=== PATIENT | female | born 1950 | race Caucasian/White ===

== ENCOUNTER 2025-06-16 08:59 | Emergency (ER) | payer MEDICARE, MEDICAID, SELFPAY ==
[2025-06-16] VITALS (7 sets, daily range): BP systolic 118–161; BP diastolic 49–89; PULSE 81–95; RESP 14–24; TEMP 36.6–36.7; O2SAT 96–100
--- NOTE | ~2025-06-16 | CT_ITS ---
EXAMINATION: CT brain wo con DATE: 06/16/2025 09:28 INDICATION: Weakness TECHNIQUE: Computed tomography (CT) of the head was performed without intravenous contrast. The dose-length product was 1210.67 mGy-cm. COMPARISON: None FINDINGS: Exam somewhat limited by moderately extensive motion artifact. No gross intracranial mass effect or hemorrhage. No large acute ischemic event. Moderately advanced chronic microvascular ischemic appearing white matter changes and volume loss. Calvarial structures appear grossly normal. IMPRESSION: 1. Moderately extensive motion artifact with no large acute ischemic event, mass or hemorrhage. 2. Moderately extensive chronic-appearing microvascular ischemic appearing white matter changes. Reviewed, dictated and finalized at location A. SERVICE MANAGER IMPRESSION: 1. Moderately extensive motion artifact with no large acute ischemic event, mas s or hemorrhage. 2. Moderately extensive chronic-appearing microvascular ischemic appearing whit e matter changes.
--- NOTE | ~2025-06-16 | XR_ITS ---
EXAMINATION: XR chest 2V, 06/16/2025 9:28 SOCIAL WORKER ASSISTANT HISTORY: weakness, TACHYCARDIA COMPARISON: No comparisons available. Technique: 2 views obtained. Findings: The lungs are clear, no effusion. No pneumothorax. Heart is normal size. Mediastinal and hilar contours are within normal limits. Bony thorax no acute abnormality. Impression: No acute cardiopulmonary abnormality. Reviewed, dictated and finalized at location P. AL WORKER ASSISTANT Impression: No acute cardiopulmonary abnormality.
--- NOTE | 2025-06-16 09:09 | ECG_ITS ---
Test Date: 2025-06-16 09:53:45 Measurements Intervals [place] Rate: 90 P: 46 [place]: 292 QRS: -35 QRSD: 77 T: 34 QT: 414 QTc: 508 Interpretive Statements ATRIAL FLUTTER LOW QRS VOLTAGE IN PRECORDIAL LEADS [QRS DEFLECTION < 1.0 mV IN CHEST LEADS] POSSIBLE RIGHT VENTRICULAR CONDUCTION DELAY [RSR (QR) IN V1/V2] No previous ECG available for comparison Electronically Signed On 06-16-2025 13:20:56 CUSTOMER SUCCESS ADVOCATE by Charles Thornton M.D.
[2025-06-16 09:23] LABS: Hematocrit 41.8 % (37.0-47.0); Hemoglobin 13.9 g/dL (12.0-15.0); Immature Granulocyte Percent A 0.3 % (0-0.5); Lymphocytes Absolute Auto 2.44 K/mm3 (0.9-3.2); Mean Corpuscular HGB Conc 33.3 g/dl (32-36); Mean Corpuscular Hemoglobin 27.1 pg (26-34); Mean Corpuscular Volume 81.6 fl (80-100); Nucleated Red Blood Cells Absolute Auto 0.000 K/mm3 (0.0-0.012); Nucleated Red Blood Cells Perc 0.0 % (0.0-0.2); Platelet Count Result 372 k/mm3 (150-375); Red Blood Count 5.12 M/mm3 (4.2-5.4); White Blood Count 12.0 K/mm3 (4.5-10.0)
[2025-06-16 09:51] LABS: Alanine Aminotransferase 14 U/L (6-35); Albumin Level 4.1 g/dL (3.5-5.1); Alkaline Phosphatase 88 U/L (38-126); Anion Gap 7 mmol/L (4-12); Aspartate Amino Transferase 15 U/L (14-36); Bilirubin,Total 0.4 mg/dL (0.2-1.3); Blood Urea Nitrogen 10 mg/dL (7-17); Calcium 10.1 mg/dL (8.4-10.2); Carbon Dioxide 28 mmol/L (22-30); Chloride 104 mmol/L (98-107); Estimated CRCL calculation 71 ml/min; Estimated Glomerular Filt Rate > 60; Glucose 153 mg/dL (65-110); Potassium 4.3 mmol/L (3.4-5.0); Sodium 139 mmol/L (137-145); Total Protein 7.2 g/dL (6.3-8.2)
--- NOTE | 2025-06-16 09:57 | ECG_ITS ---
Test Date: 2025-06-16 10:00:15 Measurements Intervals [place] Rate: 89 P: 47 [place]: 260 QRS: -50 QRSD: 78 T: 44 QT: 338 QTc: 413 Interpretive Statements SINUS RHYTHM WITH FIRST DEGREE AV BLOCK LEFT AXIS DEVIATION [QRS AXIS < -30] LOW QRS VOLTAGE IN PRECORDIAL LEADS [QRS DEFLECTION < 1.0 mV IN CHEST LEADS] POSSIBLE RIGHT VENTRICULAR CONDUCTION DELAY [RSR (QR) IN V1/V2] POSSIBLE ANTERIOR MYOCARDIAL INFARCTION , PROBABLY OLD [30 ms Q WAVE IN V3/V4, OR R < 0.2 mV IN V4] POSSIBLE INFERIOR MYOCARDIAL INFARCTION , PROBABLY OLD [30 ms Q WAVE IN II/aVF] Compared to ECG 06/16/2025 09:53:45 ST (T wave) deviation no longer present Myocardial infarct finding still present Electronically Signed On 06-16-2025 13:21:19 WHITE MIXING OPERATOR by Charles Thornton M.D.
--- NOTE | 2025-06-16 09:59 | ED_ITS ---
HPI - Weakness General Chief complaint: Weakness Stated complaint: weak, tachy, unsteady gait Time Seen by Provider: 06/16/25 09:04 Source: patient and EMS Mode of arrival: EMS Limitations: other (Poor historian; history of schizophrenia, Parkinson's) History of Present Illness HPI Narrative: This is a 75-year-old female that presents to the emergency department for weakness. Patient has no complaints currently. Unable to give a history. Related Data Allergies Allergy/AdvReac Type Severity Reaction Status Date / Time benztropine Allergy Unknown Verified 06/16/25 09:13 Penicillins Allergy Unknown Verified 06/16/25 09:13 Review of Systems 2 Review of Systems: ROS unobtainable: Yes unobtainable due to medical condition PMFSH Past Medical History Medical History (Updated 06/16/25 @ 12:35 by Dariana Bryan PA-C) Parkinsons Hyperlipidemia Diabetes mellitus Schizophrenia Hypertension Anemia Exam 2 Narrative: GENERAL: Well-appearing, well-nourished, and in no acute distress. HEAD: Normocephalic, atraumatic. EYES: PERRLA and EOMI. ENT: Nares clear, no rhinorrhea or epistaxis. Mucous membranes moist. Oropharynx without tonsillar hypertrophy exudate or other lesions. Bilateral TMs pearly ray non-bulging NECK: Supple. No adenopathy or masses. CHEST: Clear to auscultation. No respiratory distress. No wheezes rales or rhonchi HEART: Regular rate and rhythm. No murmur heard. Normal peripheral pulses. ABDOMEN: Soft, nontender, nondistended, normal active bowel sounds. EXTREMITIES: Normal range of motion. No edema. Strength equal in bilateral upper and lower extremities (4/5) SKIN: Warm, dry, no rash. NEURO: No focal deficits. Alert and oriented x3. PSYCH: Normal mood and affect Course Vital Signs Vital signs: Vital Signs Temperature 97.8 F 06/16/25 09:01 Pulse Rate 90 06/16/25 09:01 Respiratory Rate 18 06/16/25 09:01 Blood Pressure 119/69 06/16/25 09:01 Pulse Oximetry 96 06/16/25 09:01 Oxygen Delivery Room Air 06/16/25 09:01 Temperature 98.0 F 06/16/25 13:03 Pulse Rate 94 06/16/25 13:03 Respiratory Rate 18 06/16/25 13:03 Blood Pressure 144/82 H 06/16/25 13:31 Pulse Oximetry 100 06/16/25 13:03 Oxygen Delivery Room Air 06/16/25 09:01 MDM - Weakness MDM Narrative Medical decision making narrative: Patient presents to the emergency department for reported weakness. Patient is alert and oriented at baseline. No focal deficits on exam. Her vitals are stable. Patient is afebrile and nontoxic appearing. CBC with mild leukocytosis to 12. Metabolic panel without concerning findings. Urine with evidence of infection. This was sent for culture. CT brain with chronic findings. Chest x-ray without acute cardiopulmonary abnormality. Patient given 1st dose of antibiotics IV in the ER, will be discharged back to facility on oral antibiotics. Given warnings to return to the ER Differential Diagnosis Differential diagnosis: Likely anemia, sepsis, dehydration and other (UTI, dehydration, schizophrenia, vascular dementia, Parkinson's) Lab Data Attestation: I reviewed the patient's lab results. 06/16/25 09:15 06/16/25 09:15 Labs: Lab Results 06/16/25 06/16/25 Range/Units 09:15 11:01 WBC 12.0 H (4.5-10.0) K/mm3 RBC 5.12 (4.2-5.4) M/mm3 Hgb 13.9 (12.0-15.0) g/dL Hct 41.8 (37.0-47.0) % MCV 81.6 (80-100) fl MCH 27.1 (26-34) pg MCHC 33.3 (32-36) g/dl RDW 12.9 (11.5-14.5) % Plt Count 372 (150-375) k/mm3 MPV 9.4 (7.4-10.4) fl Immature Gran % (Auto) 0.3 (0-0.5) % Neut % (Auto) 68.6 (45.5-73.1) % Lymph % (Auto) 20.3 (18.3-44.2) % [place] % (Auto) 6.1 (2.6-8.5) % Eos % (Auto) 4.0 (0-4.4) % Baso % (Auto) 0.7 (0.2-1.2) % Lymph # (Auto) 2.44 (0.9-3.2) K/mm3 [place] # (Auto) 0.7 H (0.1-0.6) K/mm3 Eos # (Auto) 0.5 H (0-0.3) K/mm3 Baso # (Auto) 0.1 (0.0-0.1) K/mm3 Abs Immat Gran (auto) 0.04 H (0.00-0.031) K/mm3 Absolute Neuts (auto) 8.2 H (1.3-6.7) K/mm3 Absolute Nucleated RBC 0.000 (0.0-0.012) K/mm3 Nucleated RBC % 0.0 (0.0-0.2) % Sodium 139 (137-145) mmol/L Potassium 4.3 (3.4-5.0) mmol/L Chloride 104 (98-107) mmol/L Carbon Dioxide 28 (22-30) mmol/L Anion Gap 7 (4-12) mmol/L BUN 10 (7-17) mg/dL Creatinine 0.70 (0.7-1.0) mg/dL Estim Creat Clear Calc 71 ml/min Estimated GFR > 60 (59 - ) Glucose 153 H (65-110) mg/dL Calcium 10.1 (8.4-10.2) mg/dL Total Bilirubin 0.4 (0.2-1.3) mg/dL AST 15 (14-36) U/L ALT 14 (6-35) U/L Alkaline Phosphatase 88 (38-126) U/L Total Protein 7.2 (6.3-8.2) g/dL Albumin 4.1 (3.5-5.1) g/dL Urine Color Yellow (Yellow) Urine Appearance Turbid H (Clear) Urine pH 6.5 (5.0-9.0) Ur Specific [place] 1.017 (1.001-1.035) Urine Protein 2+ H (Negative) mg/dL Urine Glucose (UA) Negative (Negative) mg/dL Urine Ketones Trace H (Negative) mg/dL Ur Blood (Man) 2+ H (Negative) Urine Nitrate Positive H (Negative) Urine Bilirubin Negative (Negative) Urine Urobilinogen 0.2 (<2.0) mg/dL Add Ur Microanalysis Reviewed Leukocyte Esterase Rfl 3+ H (Negative) LEONARDO/UL Urine RBC 3-5 H (0-2) /hpf Urine WBC >100 H (0-3) /hpf Ur Squamous Epith Cells None seen (Few) /hpf Urine Bacteria 4+ /hpf Urine Casts 0-2 Imaging Data Radiologist's impression: ITS Impressions Head CT 06/16/25 09:29 IMPRESSION: 1. Moderately extensive motion artifact with no large acute ischemic event, mass or hemorrhage. 2. Moderately extensive chronic-appearing microvascular ischemic appearing white matter changes. Chest X-Ray 06/16/25 09:39 Impression: No acute cardiopulmonary abnormality. ECG Data EKG #1: ECG completion date: 06/16/25 EKG Interpretation: normal rate, sinus rhythm, no ST changes and normal QT Critical Care Time Critical Care Time Critical Care Time: No Discharge Plan Discharge Clinical Impression: Acute UTI Patient Disposition: NH Halfway/Asst Living Condition: Stable Instructions: Antibiotic Form, Urinary Tract Infection in Older Adults (ED) Additional Instructions: Return to the ER if you experience fever, abdominal pain with nausea and vomiting, you are unable to keep down liquids or solids, or any other symptoms that are concerning to you Take oral antibiotic as prescribed Follow up with primary care doctor Patient Language: Turkmen Prescriptions: New cefdinir 300 mg capsule 300 mg PO Q12H 5 Days Qty: 10 0RF Follow-up/Referrals: PHYSICIAN NOT ON STAFF,NONSTAFF [Primary Care Provider] Stand Alone Forms: Long Term Discharge
--- NOTE | 2025-06-16 11:09 | PC.NURSE ---
first EKG on pt showed too much artifact, EDP requesting new EKG done
--- NOTE | 2025-06-16 11:28 | PC.NURSE ---
Spoke to Elaine lopez [facility] regarding pt condition at this time.
[2025-06-16 11:29] LABS: Add Urine Microscopic? YES; Appearance Urine Turbid (Clear); Glucose Urine UA Negative (Negative); Leukocyte Esterase Ur 3+ LEU/UL (Negative); Need Manual Microscopic Reviewed; Nitrate Urine Positive (Negative); Non Pathogenic Casts 0-2; Specific Grav Ur 1.017 (1.001-1.035)
--- NOTE | 2025-06-16 12:11 | PC.NURSE ---
EDP does not want blood cultures at this time.
[2025-06-16] MEDS: cefTRIAXone 1 GM in SODIUM CHLORIDE 0.9% IV 50 ML 100 ML IVPB (12:25)
--- NOTE | 2025-06-16 13:15 | PC.NURSE ---
Spoke to Sunilla independent sales representative at this time to give report, was told a call-back would be received.
== END 2025-06-16 15:18 ==
PROVIDERS: Emergency Provider Physician Assistant
DX: N39.0 Urinary tract infection, site not specified (principal); G20.A1 Parkinson's disease without dyskinesia, without mention of fluctuations; I10 Essential (primary) hypertension; E78.5 Hyperlipidemia, unspecified; E11.9 Type 2 diabetes mellitus without complications; Z86.2 Personal history of diseases of the blood and blood-forming organs and certain disorders involving the immune mechanism; I44.0 Atrioventricular block, first degree; I48.92 Unspecified atrial flutter; R94.31 Abnormal electrocardiogram [ECG] [EKG]
CPT/HCPCS: 36415; 70450; 71046; 80053; 81001; 85025; 87077; 87086; 87186; 93005; 96365; 99284; J0696

== ENCOUNTER 2025-06-19 18:50 | Inpatient (IN) | payer MEDICARE, MEDICAID, SELFPAY ==
--- NOTE | ~2025-06-19 | CT_ITS ---
CT HEAD NON-CONTRAST CT C-SPINE Clinical History: FALL Comparison: None Technique: Unenhanced axial images skull base to vertex. Coronal, sagittal reformats. Axial images thoracic inlet to skull base. Sagittal and coronal reformats. CT images acquired with automatic exposure control for dose reduction DLP: 1362 mGy-cm Findings: Head: Large infarct left temporal and parietal lobe. No hemorrhagic conversion or intracranial hemorrhage. Chronic white matter microvascular ischemic changes. Sulci, ventricles: Unremarkable. No mass effect, midline shift, intra-/extra-axial fluid collection. Bony calvarium intact. Visualized paranasal sinuses: Clear. Mastoid air cells: Clear. C-spine: No acute fracture or listhesis. Vertebral bodies normal height and alignment. Moderate degenerative changes. Disc spaces maintained. Prevertebral soft tissues within normal limits. Visualized lung apices: 3 mm nodule medial left side. Visualized thyroid: Unremarkable. No enlarged cervical nodes. IMPRESSION: HEAD: 1. Large infarct left temporal and parietal lobes. 2. No hemorrhagic conversion or intracranial hemorrhage. C-SPINE: 1. No acute fracture. Reviewed, dictated and finalized at location R. TAL MEDIA SALES CONSULTANT IMPRESSION: HEAD: 1. Large infarct left temporal and parietal lobes. 2. No hemorrhagic conversion or intracranial hemorrhage. C-SPINE: 1. No acute fracture.
--- NOTE | ~2025-06-19 | CT_ITS ---
CT HEAD NON-CONTRAST CT C-SPINE Clinical History: fall Comparison: CT brain and C-spine one day prior Technique: Unenhanced axial images skull base to vertex. Coronal, sagittal reformats. Axial images thoracic inlet to skull base. Sagittal and coronal reformats. CT images acquired with automatic exposure control for dose reduction DLP: 681 mGy-cm Findings: Head: Large infarct left temporal and parietal lobe. No hemorrhagic conversion or intracranial hemorrhage. Sulci, ventricles: Unremarkable. No mass effect, midline shift, intra-/extra-axial fluid collection. Bony calvarium intact. Visualized paranasal sinuses: Clear. Mastoid air cells: Clear. C-spine: No acute fracture or listhesis. Vertebral bodies normal height and alignment. Moderate degenerative changes. Disc spaces maintained. Prevertebral soft tissues within normal limits. Visualized lung apices: 3 mm nodule medial left side. Scarring. Visualized thyroid: Unremarkable. No enlarged cervical nodes. IMPRESSION: HEAD: 1. No acute change or intracranial hemorrhage. 2. Large infarct left temporal and parietal lobes. C-SPINE: 1. No acute fracture. Reviewed, dictated and finalized at location R. P MIXER ASSISTANT IMPRESSION: HEAD: 1. No acute change or intracranial hemorrhage. 2. Large infarct left temporal and parietal lobes. C-SPINE: 1. No acute fracture.
--- NOTE | ~2025-06-19 | XR_ITS ---
Examination: XR pelvis 1-2V Clinical History: falls Comparison: None Technique: AP pelvis Findings/impression: 1. No fracture. Reviewed, dictated and finalized at location R. T METAL HELPER
--- NOTE | ~2025-06-19 | CT_ITS ---
EXAMINATION: CTA brain carotid DATE: 06/20/2025 00:29 INDICATION: Left middle cerebral artery stroke. TECHNIQUE: Computed tomographic angiography (CTA) of the head was performed with 100 mL Omnipaque-350 intravenous contrast. CTA of the neck was performed with intravenous contrast. Automated exposure control and iterative reconstruction technique were employed. The dose-length product was 1225.68 mGy-cm. Maximum intensity projection and volume rendered 3D-reconstructions were created by the technologist on a separate workstation. COMPARISON: Head CT 06/20/2025, 06/16/25 FINDINGS: HEAD CTA: There is an infarct involving left temporal, parietal, and occipital lobes and left insula in the expected distribution of left middle cerebral artery. There are scattered areas of low attenuation in the cerebral white matter. There is no intracranial hemorrhage or abnormal mass lesion. The v entricles are normal in size. The orbits are normal. There is mild mucosal thickening in the paranasal sinuses. The mastoid air cells are normal. The vertebral arteries are codominant. There is moderate stenosis of intracranial right vertebral artery. There is no significant stenosis of basilar artery or the posterior cerebral arteries. There is no significant stenosis of the intracranial internal carotid arteries or anterior cerebral arteries. There is total occlusion of a left M2 middle cerebral artery. Anterior communicating artery is normal. The posterior communicating arteries are normal. There is no aneurysm. NECK CTA: There are multiple scattered nodules in the lungs measuring up to 8 mm. There are nodules in the thyroid measuring up to 8 mm, likely not clinically significant. There are no pathologically enlarged lymph nodes. There is no significant stenosis of the cervical vertebral arteries. There is plaque in the proximal internal carotid arteries. There is 31% stenosis of the proximal right internal carotid artery relative to normal distal artery lumen diameter (NASCET criteria). There is 5% stenosis of the proximal left internal carotid artery relative to normal distal artery lumen diameter. There is moderate cervical spondylosis. IMPRESSION: 1. Acute infarct involving the left temporal, parietal, and occipital lobes and left insula and expected distribution of left middle cerebral artery. 2. Moderate nonspecific cerebral white matter disease, which likely represents chronic small vessel ischemic disease. 3. 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 4. 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 5. 31% stenosis of the proximal right internal carotid artery relative to normal distal artery lumen diameter (NASCET criteria). 6. 5% stenosis of the proximal left internal carotid artery relative to normal distal artery lumen diameter. 7. Pulmonary nodules measuring up to 8 mm, which may be infection or metastatic disease. Reviewed, dictated and finalized at location E. BOTOMIST IMPRESSION: 1. Acute infarct involving the left temporal, parietal, and occipital lobes and left insula and expected distribution of left middle cerebral artery. 2. Moderate nonspecific cerebral white matter disease, which likely represents chronic small vessel ischemic disease. 3. 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 4. 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 5. 31% stenosis of the proximal right internal carotid artery relative to mehul l distal artery lumen diameter (NASCET criteria). 6. 5% stenosis of the proximal left internal carotid artery relative to normal distal artery lumen diameter. 7. Pulmonary nodules measuring up to 8 mm, which may be infection or metastatic disease.
--- NOTE | ~2025-06-19 | XR_ITS ---
Examination: XR chest 1V Clinical History: AMS Comparison: 06/16/2025 Technique: Portable AP Findings: Heart size normal. Lungs clear. No acute bony abnormality. IMPRESSION: 1. No acute cardiopulmonary findings given portable technique. Reviewed, dictated and finalized at location R. MILL OPERATOR
[2025-06-19 18:52] VITALS: BP 122/80; PULSE 94; RESP 16; TEMP 36.6; O2SAT 95
[2025-06-19 19:39] VITALS: BP 109/85; PULSE 87; RESP 18; O2SAT 100
--- NOTE | 2025-06-19 21:25 | ECG_ITS ---
Test Date: 2025-06-19 22:10:37 Measurements Intervals [place] Rate: 93 P: 39 [place]: 243 QRS: -69 QRSD: 95 T: 51 QT: 345 QTc: 430 Interpretive Statements SINUS RHYTHM WITH FIRST DEGREE AV BLOCK LOW QRS VOLTAGE IN EXTREMITY LEADS PATTERN CONSISTENT WITH PULMONARY DISEASE INCOMPLETE RIGHT BUNDLE BRANCH BLOCK LEFT ANTERIOR FASCICULAR BLOCK INFERIOR MYOCARDIAL INFARCTION , PROBABLY OLD Electronically Signed On 06-20-2025 09:58:24 TONGUE AND QUARTER STITCHER by Epi Bonilla D.O
--- NOTE | 2025-06-19 21:25 | ED_ITS ---
HPI - General Adult General Chief complaint: Fall Stated complaint: HEAD LAC, S/P FALL Time Seen by Provider: 06/19/25 20:12 History of Present Illness HPI narrative: This is a 75-year-old female with history of Parkinson's, high cholesterol, diabetes hypertension and schizophrenia presenting for increased confusion. Patient had an unwitnessed fall at the correction. patient cannot provide any meaningful intra history to guide the workup. She does not remember fall. Per her legal guardian, Lydia Suresh ([phone]) she has been more confused than usual over the last week. She has also been complaining about difficulty seen which Lydia feels is due to cataracts. The patient denies any complaints at this time. Patient was seen here 2 days ago and diagnosed w/ UTI. she is currently on abx. Related Data Allergies Allergy/AdvReac Type Severity Reaction Status Date / Time benztropine Allergy Unknown Verified 06/16/25 09:13 Penicillins Allergy Unknown Verified 06/16/25 09:13 [facility] Past Medical History Medical History Parkinsons Hyperlipidemia Diabetes mellitus Schizophrenia Hypertension Anemia Exam 2 Narrative: APPEARANCE: Chronically unwell appearing, A&O x1 Head: atraumatic. EYES: EOMI, pupils equal and reactive NOSE: Atraumatic NECK: Trachea midline RESPIRATORY: No increased rate of breathing clear to auscultation CARDIOVASCULAR: RRR, no peripheral edema ABDOMINAL: Non-distended MUSCULOSKELETAl: No obvious deformities NEURO: Alert. moving for 4 extremities to command, pill rolling tremor in the right hand, cranial nerves 2-12 intact. SKIN:: Warm, dry. Normal color PSYCHIATRIC: Normal affect Course Vital Signs Vital signs: Vital Signs Temperature 97.8 F 06/19/25 18:52 Pulse Rate 94 06/19/25 18:52 Respiratory Rate 16 06/19/25 18:52 Blood Pressure 122/80 06/19/25 18:52 Pulse Oximetry 95 06/19/25 18:52 Oxygen Delivery Room Air 06/19/25 18:52 Temperature 97.8 F 06/19/25 18:52 Pulse Rate 96 06/20/25 01:44 Respiratory Rate 18 06/20/25 01:44 Blood Pressure 116/66 06/20/25 01:44 Pulse Oximetry 96 06/20/25 01:44 Oxygen Delivery Room Air 06/19/25 18:52 Medical Decision Making MDM Narrative Medical decision making narrative: -Course: 75-year-old female re-presented to the ED for increased confusion and frequent falls. Patient was confused and would not sit still for the CTs and required Zyprexa for sedation. CT the brain showed old a subacute infarct in the left MCA distribution. CTA showed occlusion of the M2 segment. This was discussed with Dr. Tubbs and the patient is outside of any treatment window. Patient will be admitted the hospital for further stroke workup. While in the emergency department the patient got out of bed and had a fall. CT head and C- spine Negative for acute injuries. No injuries on physical exam. Patient will be admitted for further management. -DDX includes but is not limited to: CVA, intracranial hemorrhage, sepsis dehydration pneumonia UTI Vital Signs Vital Signs: Vital Signs Temperature 97.8 F 06/19/25 18:52 Pulse Rate 94 06/19/25 18:52 Respiratory Rate 16 06/19/25 18:52 Blood Pressure 122/80 06/19/25 18:52 Pulse Oximetry 95 06/19/25 18:52 Oxygen Delivery Room Air 06/19/25 18:52 Temperature 97.8 F 06/19/25 18:52 Pulse Rate 96 06/20/25 01:44 Respiratory Rate 18 06/20/25 01:44 Blood Pressure 116/66 06/20/25 01:44 Pulse Oximetry 96 06/20/25 01:44 Oxygen Delivery Room Air 06/19/25 18:52 Lab Data 06/19/25 22:32 06/19/25 22:32 Labs: Lab Results 06/19/25 06/19/25 06/19/25 Range/Units 22:05 22:32 22:33 WBC 15.7 H (4.5-10.0) K/mm3 RBC 5.33 (4.2-5.4) M/mm3 Hgb 14.4 (12.0-15.0) g/dL Hct 43.3 (37.0-47.0) % MCV 81.2 (80-100) fl MCH 27.0 (26-34) pg MCHC 33.3 (32-36) g/dl RDW 12.8 (11.5-14.5) % Plt Count 344 (150-375) k/mm3 MPV 9.7 (7.4-10.4) fl Immature Gran % (Auto) 0.3 (0-0.5) % Neut % (Auto) 72.3 (45.5-73.1) % Lymph % (Auto) 18.5 (18.3-44.2) % [place] % (Auto) 6.4 (2.6-8.5) % Eos % (Auto) 1.9 (0-4.4) % Baso % (Auto) 0.6 (0.2-1.2) % Lymph # (Auto) 2.90 (0.9-3.2) K/mm3 [place] # (Auto) 1.0 H (0.1-0.6) K/mm3 Eos # (Auto) 0.3 (0-0.3) K/mm3 Baso # (Auto) 0.1 (0.0-0.1) K/mm3 Abs Immat Gran (auto) 0.05 H (0.00-0.031) K/mm3 Absolute Neuts (auto) 11.3 H (1.3-6.7) K/mm3 Absolute Nucleated RBC 0.000 (0.0-0.012) K/mm3 Nucleated RBC % 0.0 (0.0-0.2) % PT 13.9 (11.1-14.7) Seconds INR 1.1 APTT 28.4 (22.3-36.8) Seconds Sodium 135 L (137-145) mmol/L Potassium 3.9 (3.4-5.0) mmol/L Chloride 100 (98-107) mmol/L Carbon Dioxide 27 (22-30) mmol/L Anion Gap 8 (4-12) mmol/L BUN 12 (7-17) mg/dL Creatinine 0.68 L (0.7-1.0) mg/dL Estim Creat Clear Calc Not Reportable Estimated GFR > 60 (59 - ) Glucose 213 H (65-110) mg/dL Lactic Acid 1.4 (0.7-2.0) mmol/L Calcium 10.0 (8.4-10.2) mg/dL Phosphorus 3.0 (2.5-4.5) mg/dL Magnesium 2.0 (1.6-2.3) mg/dL Total Bilirubin 0.6 (0.2-1.3) mg/dL AST 20 (14-36) U/L ALT 15 (6-35) U/L Alkaline Phosphatase 97 (38-126) U/L Total Creatine Kinase 93 (30-135) U/L Troponin I < 0.012 (0.000-0.034) ng/mL NT-Pro-B Natriuret Pep 56 (19.9-100) pg/mL Total Protein 7.5 (6.3-8.2) g/dL Albumin 4.4 (3.5-5.1) g/dL Lipase 39 (23-300) U/L TSH (Reflex) 1.390 (0.465-4.68) uIU/mL Urine Color Yellow (Yellow) Urine Appearance Clear (Clear) Urine pH 5.0 (5.0-9.0) Ur Specific [place] 1.023 (1.001-1.035) Urine Protein Trace (Negative) mg/dL Urine Glucose (UA) 2+ H (Negative) mg/dL Urine Ketones Trace H (Negative) mg/dL Ur Blood (Man) Negative (Negative) Urine Nitrate Negative (Negative) Urine Bilirubin Negative (Negative) Urine Urobilinogen 0.2 (<2.0) mg/dL Add Ur Microanalysis Reviewed Leukocyte Esterase Rfl Negative (Negative) LEONARDO/UL Urine RBC 0-2 (0-2) /hpf Urine WBC 0-5 (0-3) /hpf Ur Squamous Epith Cells None seen (Few) /hpf Urine Bacteria None seen /hpf Urine Casts 0-2 Urine Mucus Present /lpf Salicylates < 1.0 L (2-20) mg/dL Urine Opiates Screen Negative (Negative) Urine Methadone Screen Negative (Negative) Acetaminophen < 10 L (10-30) ug/mL Ur Barbiturates Screen Negative (Negative) Ur Phencyclidine Scrn Negative (Negative) Ur Amphetamine Screen Negative (Negative) U Benzodiazepines Scrn Negative (Negative) Urine Cocaine Screen Negative (Negative) U Cannabinoids Screen Negative (Negative) Ethyl Alcohol < 10 (<10) mg/dL Influenza A (RT-PCR) Negative (Negative) Influenza B (RT-PCR) Negative (Negative) RSV (RT-PCR) Negative (Negative) SARS-CoV-2 RNA (RT-PCR) Negative (Negative) 06/20/25 Range/Units 00:31 WBC (4.5-10.0) K/mm3 RBC (4.2-5.4) M/mm3 Hgb (12.0-15.0) g/dL Hct (37.0-47.0) % MCV (80-100) fl MCH (26-34) pg MCHC (32-36) g/dl RDW (11.5-14.5) % Plt Count (150-375) k/mm3 MPV (7.4-10.4) fl Immature Gran % (Auto) (0-0.5) % Neut % (Auto) (45.5-73.1) % Lymph % (Auto) (18.3-44.2) % [place] % (Auto) (2.6-8.5) % Eos % (Auto) (0-4.4) % Baso % (Auto) (0.2-1.2) % Lymph # (Auto) (0.9-3.2) K/mm3 [place] # (Auto) (0.1-0.6) K/mm3 Eos # (Auto) (0-0.3) K/mm3 Baso # (Auto) (0.0-0.1) K/mm3 Abs Immat Gran (auto) (0.00-0.031) K/mm3 Absolute Neuts (auto) (1.3-6.7) K/mm3 Absolute Nucleated RBC (0.0-0.012) K/mm3 Nucleated RBC % (0.0-0.2) % PT (11.1-14.7) Seconds INR APTT (22.3-36.8) Seconds Sodium (137-145) mmol/L Potassium (3.4-5.0) mmol/L Chloride (98-107) mmol/L Carbon Dioxide (22-30) mmol/L Anion Gap (4-12) mmol/L BUN (7-17) mg/dL Creatinine (0.7-1.0) mg/dL Estim Creat Clear Calc Estimated GFR (59 - ) Glucose (65-110) mg/dL Lactic Acid (0.7-2.0) mmol/L Calcium (8.4-10.2) mg/dL Phosphorus (2.5-4.5) mg/dL Magnesium (1.6-2.3) mg/dL Total Bilirubin (0.2-1.3) mg/dL AST (14-36) U/L ALT (6-35) U/L Alkaline Phosphatase (38-126) U/L Total Creatine Kinase (30-135) U/L Troponin I < 0.012 (0.000-0.034) ng/mL NT-Pro-B Natriuret Pep (19.9-100) pg/mL Total Protein (6.3-8.2) g/dL Albumin (3.5-5.1) g/dL Lipase (23-300) U/L TSH (Reflex) (0.465-4.68) uIU/mL Urine Color (Yellow) Urine Appearance (Clear) Urine pH (5.0-9.0) Ur Specific [place] (1.001-1.035) Urine Protein (Negative) mg/dL Urine Glucose (UA) (Negative) mg/dL Urine Ketones (Negative) mg/dL Ur Blood (Man) (Negative) Urine Nitrate (Negative) Urine Bilirubin (Negative) Urine Urobilinogen (<2.0) mg/dL Add Ur Microanalysis Leukocyte Esterase Rfl (Negative) LEONARDO/UL Urine RBC (0-2) /hpf Urine WBC (0-3) /hpf Ur Squamous Epith Cells (Few) /hpf Urine Bacteria /hpf Urine Casts Urine Mucus /lpf Salicylates (2-20) mg/dL Urine Opiates Screen (Negative) Urine Methadone Screen (Negative) Acetaminophen (10-30) ug/mL Ur Barbiturates Screen (Negative) Ur Phencyclidine Scrn (Negative) Ur Amphetamine Screen (Negative) U Benzodiazepines Scrn (Negative) Urine Cocaine Screen (Negative) U Cannabinoids Screen (Negative) Ethyl Alcohol (<10) mg/dL Influenza A (RT-PCR) (Negative) Influenza B (RT-PCR) (Negative) RSV (RT-PCR) (Negative) SARS-CoV-2 RNA (RT-PCR) (Negative) ABG Data ABG results: 06/19/25 22:32 VBG pH 7.441 H* VBG pCO2 33.4 L VBG pO2 40.9 VBG HCO3 22.2 L O2 Delivery Device Room air O2 Liters/Min Not Reportable FiO2 21 Discharge Plan Discharge Clinical Impression: CVA (cerebrovascular accident) Patient Disposition: Home Condition: Stable Instructions: Antibiotic Form Patient Language: Amharic Prescriptions: No Action cefdinir 300 mg capsule 300 mg PO Q12H 5 Days Qty: 10 0RF Follow-up/Referrals: PHYSICIAN,DOCUMENT RESTORER [Primary Care Provider, Internal Medicine]
--- NOTE | 2025-06-19 22:15 | PC.NURSE ---
This RN attempted to draw pt blood twice and was unsuccessful both times. specialty development consultant notified and states we can call phlebotomy.
[2025-06-19 22:45] LABS: Hematocrit 43.3 % (37.0-47.0); Hemoglobin 14.4 g/dL (12.0-15.0); Immature Granulocyte Percent A 0.3 % (0-0.5); Lymphocytes Absolute Auto 2.90 K/mm3 (0.9-3.2); Mean Corpuscular HGB Conc 33.3 g/dl (32-36); Mean Corpuscular Hemoglobin 27.0 pg (26-34); Mean Corpuscular Volume 81.2 fl (80-100); Nucleated Red Blood Cells Absolute Auto 0.000 K/mm3 (0.0-0.012); Nucleated Red Blood Cells Perc 0.0 % (0.0-0.2); Platelet Count Result 344 k/mm3 (150-375); Red Blood Count 5.33 M/mm3 (4.2-5.4); White Blood Count 15.7 K/mm3 (4.5-10.0)
[2025-06-19 22:50] VITALS: BP 109/65; PULSE 89; RESP 20; O2SAT 96
[2025-06-19 22:50] LABS: Influenza A QL RT-PCR Negative (Negative); Influenza B QL RT-PCR Negative (Negative); RSV RNA, RT-PCR Negative (Negative); SARS-CoV-2 RNA PCR Negative (Negative)
[2025-06-19 22:56] LABS: Fractional Inspired Oxygen 21 %; HCO3 VBG 22.2 mEq/l (24.0-30.0); INR 1.1; PCO2 VBG 33.4 mmHg (42.0-48.0); PO2 VBG 40.9 mmHg (35.0-45.0); Prothrombin Time 13.9 Seconds (11.1-14.7)
[2025-06-19 22:57] LABS: Partial Thromboplastin Time 28.4 Seconds (22.3-36.8); pH VBG 7.441 (7.300-7.400)
[2025-06-19 22:58] LABS: Add Urine Microscopic? YES; Appearance Urine Clear (Clear); Glucose Urine UA 2+ mg/dL (Negative); Leukocyte Esterase Ur Negative LEU/UL (Negative); Need Manual Microscopic Reviewed; Nitrate Urine Negative (Negative); Non Pathogenic Casts 0-2; Specific Grav Ur 1.023 (1.001-1.035)
[2025-06-19 23:00] LABS: Alanine Aminotransferase 15 U/L (6-35); Albumin Level 4.4 g/dL (3.5-5.1); Alkaline Phosphatase 97 U/L (38-126); Anion Gap 8 mmol/L (4-12); Aspartate Amino Transferase 20 U/L (14-36); Bilirubin,Total 0.6 mg/dL (0.2-1.3); Blood Urea Nitrogen 12 mg/dL (7-17); Calcium 10.0 mg/dL (8.4-10.2); Carbon Dioxide 27 mmol/L (22-30); Chloride 100 mmol/L (98-107); Creatine Kinase 93 U/L (30-135); Estimated Glomerular Filt Rate > 60; Glucose 213 mg/dL (65-110); Lipase 39 U/L (23-300); Magnesium 2.0 mg/dL (1.6-2.3); Potassium 3.9 mmol/L (3.4-5.0); Sodium 135 mmol/L (137-145); Total Protein 7.5 g/dL (6.3-8.2)
[2025-06-19 23:03] LABS: Cannabinoid Screen Urine Negative (Negative)
[2025-06-19 23:11] LABS: NT Pro B Type Natriuretic Pept 56 pg/mL (19.9-100); Troponin I < 0.012 ng/mL (0.000-0.034)
[2025-06-19 23:31] LABS: Thyroid Stimulating Hormone Reflex 1.390 uIU/mL (0.465-4.68)
[2025-06-19 23:47] LABS: Acetaminophen < 10 ug/mL (10-30); Salicylate < 1.0 mg/dL (2-20)
--- NOTE | 2025-06-19 23:59 | PC.NURSE ---
MD telles verbally states not to draw blood cultures before starting IV antibiotics.
[2025-06-20] VITALS (7 sets, daily range): BP systolic 116–144; BP diastolic 62–102; PULSE 72–98; RESP 14–21; TEMP 36.1–36.6; O2SAT 93–100
[2025-06-20] MEDS: cefTRIAXone 1 GM in SODIUM CHLORIDE 0.9% IV 50 ML 100 ML IVPB (00:05)
[2025-06-20 01:03] LABS: Troponin I < 0.012 ng/mL (0.000-0.034)
[2025-06-20] MEDS: OLANZapine 10 MG, WATER, STERILE FOR INJECTION 2.1 ML IM (01:42)
--- NOTE | 2025-06-20 02:31 | PC.NURSE ---
This RN overheard CRISTY Wharton in pt room asking her questions. RN walked into room with pt on the ground with ED security and PA next to pt. Pt was on the ground curled up. No obvious injuries noted or active bleeding. Pt baseline is A&Ox1-2. Pt seems the same orientation mendoza. Pt was on a bed alarm. The bed alarm was not plugged into the wall. This RN did not unplug the bed alarm and is unsure of how it was unplugged at this time. Pt placed back into bed with bed alarm plugged in and pt/bed repositioned.
--- NOTE | 2025-06-20 04:21 | PM.IMHP ---
H&P: HPI History of Present Illness Date/Time: 06/20/25 04:21 Chief Complaint: Confusion Narrative: 75-year-old female presents to [facility] ER on 06/19/2025 from [place] for increased confusion, unwitnessed fall. Baseline A&O 1-2. Nursing staff reports she was more confused than usual. History of hypertension, anemia, diabetes mellitus, hyperlipidemia, Parkinson's, schizophrenia. Was also seen in the ER on 06/16/2025 for weakness, CT brain showed chronic findings, given antibiotics after being diagnosed a UTI. Patient received Zyprexa as she was agitated, before CT. CT brain showed subacute infarct in the left MCA distribution, CTA showed occlusion of M2 segment. Otherwise CT head and C-spine negative for acute injuries. Official radiology interpretation is pending. Case discussed with Neurology on-call, no further recommendations. Review of Systems Review of Systems: All systems reviewed & are unremarkable except as noted in HPI and below (Subjective) ROS unobtainable: Yes unobtainable due to medical condition PMFSH Past Medical History Medical History Parkinsons Hyperlipidemia Diabetes mellitus Schizophrenia Hypertension Anemia Meds Home Medications and Allergies Home Medications ?Medication ?Instructions ?Recorded ?Confirmed ?Type cefdinir 300 mg capsule 300 mg PO Q12H 5 days #10 caps 06/16/25 Rx Allergies Allergy/AdvReac Type Severity Reaction Status Date / Time benztropine Allergy Unknown Verified 06/16/25 09:13 Penicillins Allergy Unknown Verified 06/16/25 09:13 Vital Signs Vital Signs - 24 hr 06/19/25 18:52 06/19/25 19:39 06/19/25 22:50 Temperature 97.8 F Pulse Rate 94 87 89 Respiratory Rate 16 18 20 Blood Pressure 122/80 109/85 109/65 Pulse Oximetry 95 100 96 Oxygen Delivery Room Air 06/20/25 01:44 Temperature Pulse Rate 96 Respiratory Rate 18 Blood Pressure 116/66 Pulse Oximetry 96 Oxygen Delivery Exam Const: General: comfortable and no acute distress Other: Pleasantly confused Eyes: Pupils: Equal, round and reactive pupils present Neck: Neck: supple Resp: Effort & Inspection: normal respiratory effort Auscultation: clear to auscultation bilaterally Cardio: Rate: regular rate Rhythm: regular rhythm GI: GI Palp: Yes Soft to palpation Extrem: General: no edema H&P: Results Labs Labs: Short CBC 06/19/25 Range/Units 22:32 WBC 15.7 H (4.5-10.0) K/mm3 Hgb 14.4 (12.0-15.0) g/dL Hct 43.3 (37.0-47.0) % Plt Count 344 (150-375) k/mm3 BMP 06/19/25 22:32 Sodium 135 L Potassium 3.9 Chloride 100 Carbon Dioxide 27 BUN 12 Creatinine 0.68 L Glucose 213 H Calcium 10.0 Cardiac Enzymes 06/19/25 06/20/25 Range/Units 22:32 00:31 Total Creatine Kinase 93 (30-135) U/L Troponin I < 0.012 < 0.012 (0.000-0.034) ng/mL Liver Function 06/19/25 Range/Units 22:32 Total Bilirubin 0.6 (0.2-1.3) mg/dL AST 20 (14-36) U/L ALT 15 (6-35) U/L Alkaline Phosphatase 97 (38-126) U/L Albumin 4.4 (3.5-5.1) g/dL Urine 06/19/25 Range/Units 22:33 Urine Color Yellow (Yellow) Urine Appearance Clear (Clear) Urine pH 5.0 (5.0-9.0) Ur Specific [place] 1.023 (1.001-1.035) Urine Protein Trace (Negative) mg/dL Urine Glucose (UA) 2+ H (Negative) mg/dL Assessment and Plan Assessment and plan (1) UTI (urinary tract infection): Code(s): N39.0 - Urinary tract infection, site not specified Status: Acute (2) CVA (cerebrovascular accident): Code(s): I63.9 - Cerebral infarction, unspecified Status: Acute (3) Weakness: Code(s): R53.1 - Weakness Status: Acute Plan Neurochecks Q 4. Fall precautions, ambulate with assistance, PT/OT. Monitor neurologic status. No focal deficits. However, patient does not participate with examination. She appears to have no lateralizing deficits. Neurology consultation. Aspirin, atorvastatin. Medication reconciliation is pending. Continue ceftriaxone. Antibiotics was started on 06/16/2025, urine culture from that ER visit demonstrates sensitivity to ceftriaxone. E coli. Monitor leukocytosis. No evidence of sepsis. SCDs. Full code. Heart healthy diet. Hospitalist MIPS Advance Care Plan I have confirmed that the patient's Advanced Care Plan is present, code status is documented, or surrogate decision maker is listed in patient medical record.: Yes Medication Reconciliation I have utilized all available resources to obtain, update and review the patients current medications (includes all prescriptions, OTC, herbals, cannabis, and nutritional supplements).: Yes
[2025-06-20] MEDS: ASPIRIN 81 MG ENTERIC TABLET PO (05:00)
--- NOTE | 2025-06-20 05:05 | WPCEDHO ---
ED Hand Off Checklist All vitals saved: Yes IV Site documented:Yes All med administrations documented:Yes Triage Note Triage Note Pt to the ED via EMS from [facility] 06/19/25 18:52 for evaluation of a head laceration after a fall today. Pt is A&Oz1-2 at baseline but [facility] staff reports pt has been more confused than normal, and is on antibiotics for a UTI. Pt arrives in a [facility] from EMS. Pt has hx of Parkinson's Allergies benztropine Allergy (Verified 06/16/25 09:13) Unknown Penicillins Allergy (Verified 06/16/25 09:13) Unknown Current Diagnoses Cerebral infarction, unspecified (06/20/25) Urinary tract infection, site not specified (06/20/25) Weakness (06/20/25) Active Medications including assessments/comments Aspirin (Aspirin 81 Mg Enteric Tablet) 81 mg PO QAM [facility] Last Admin: 06/20/25 05:00 Dose: 81 mg Documented By: JASMYNE Administered/Completed Medications Discontinued Medications Olanzapine 10 mg/ Sterile (Water 2.1 ml) 0 mg IM ONCE ONE Stop: 06/20/25 01:02 Last Admin: 06/20/25 01:42 Dose: 10 mg Documented By: JASMYNE Ceftriaxone Sodium 1 gm/ (Sodium Chloride) 50 mls @ 100 mls/hr IVPB ONCE STA Stop: 06/20/25 00:04 Last Infusion: 06/20/25 00:53 Dose: Infused Documented By: Admin: 06/20/25 00:05 Dose: 100 mls/hr Documented By: JASMYNE Notes 06/20/25 02:31 Nurse Note by Eva Watson This RN overheard CRISTY Wharton in pt room asking her questions. RN walked into room with pt on the ground with ED security and PA next to pt. Pt was on the ground curled up. No obvious injuries noted or active bleeding. Pt baseline is A&Ox1-2. Pt seems the same orientation mendoza. Pt was on a bed alarm. The bed alarm was not plugged into the wall. This RN did not unplug the bed alarm and is unsure of how it was unplugged at this time. Pt placed back into bed with bed alarm plugged in and pt/bed repositioned. Initialized on 06/20/25 02:31 - END OF NOTE 06/19/25 23:59 Nurse Note by Eva Watson MD verbally states not to draw blood cultures before starting IV antibiotics. Initialized on 06/19/25 23:59 - END OF NOTE 06/19/25 22:15 Nurse Note by Eva Watson This RN attempted to draw pt blood twice and was unsuccessful both times. equipment technician notified and states we can call phlebotomy. Initialized on 06/19/25 22:15 - END OF NOTE Interventions/Assessments IV / Saline Lock, Insert Start: 06/19/25 18:49 Freq: Status: Active Protocol: Document 06/20/25 01:44 KRZ (Rec: 06/20/25 01:44 KRZ [id number]) IV Assessment Peripheral Access Left Hand IV Catheter Access Discontinued Access Additional IV Pt ripped at her left hand IV. Comments PA: Neurological Assessment Start: 06/19/25 18:49 Freq: Status: Active Protocol: Document 06/19/25 19:47 KRZ (Rec: 06/19/25 19:49 KRZ [id number]) Neurological Assessment Level of Alert Consciousness Arousable to Verbal Orientation Oriented to Person,Disoriented to Place,Disoriented to Time Neurological Confusion,Frequent Falls,Weakness, General Symptoms Hallucination Type None Behavior Cooperative Ability to Maintain Unable to Assess Balance Facial Symmetry Symmetrical Speech Pattern [place] Coma Scale Eyes Open Verbal Disoriented Motor Follows Commands Markie Coma Total 14 Score Post Fall Assessment Start: 06/20/25 02:40 Freq: Status: Active Protocol: Document 06/20/25 02:47 KRZ (Rec: 06/20/25 02:52 KRZ [id number]) Post Fall Assessment Date of Fall 06/20/25 Time of Fall 02:20 Location of Fall Patient Room Patient Activity at Unknown/Found on Floor Time of Fall Was Patient Lowered No to the Floor? Family/Guardian Pt family did not answer. voicemail left for them Notified Name and Number of Sophia Suresh/ [phone] Family Member/ Guardian Notified Date Family/Guardian 06/20/25 Notified Time Family/Guardian 02:47 Notified Provider Notified Yes Name of Provider Arnie Notified Date Provider 06/20/25 Notified Time Provider 02:52 Notified Nursing Plastic Boat Patcher Yes Notified Charge Nurse/Coordinator Hotels Yes Notified Patient Complaint Pt body assessed for new injuries none notified. Pt is After Fall not moaning or groaning on palpation of her body anywhere. Pt is A&Ox1-2 baseline. Pt is unable to tell of us if she hit her head. Pt is not stating that she is having pain anywhere at this time. Last Vital Signs Temperature 97.8 F 06/19/25 18:52 Pulse Rate 91 06/20/25 05:03 Respiratory Rate 21 H 06/20/25 05:03 Pulse Oximetry 98 06/20/25 05:03 Blood Pressure 120/90 06/20/25 05:03 Blood Pressure Mean 100 06/20/25 05:03 Blood Pressure Position Sitting 06/19/25 18:52 Oxygen Delivery Room Air 06/19/25 18:52 Last Result - Abnormals Only WBC 15.7 K/mm3 (4.5-10.0) H 06/19/25 22:32 [place] # (Auto) 1.0 K/mm3 (0.1-0.6) H 06/19/25 22:32 Abs Immat Gran (auto) 0.05 K/mm3 (0.00-0.031) H 06/19/25 22:32 Absolute Neuts (auto) 11.3 K/mm3 (1.3-6.7) H 06/19/25 22:32 VBG pH 7.441 (7.300-7.400) H* 06/19/25 22:32 VBG pCO2 33.4 mmHg (42.0-48.0) L 06/19/25 22:32 VBG HCO3 22.2 mEq/l (24.0-30.0) L 06/19/25 22:32 Sodium 135 mmol/L (137-145) L 06/19/25 22: Creatinine 0.68 mg/dL (0.7-1.0) L 06/19/25 22: Glucose 213 mg/dL (65-110) H 06/19/25 22:32 Urine Glucose (UA) 2+ mg/dL (Negative) H 06/19/25 22:33 Urine Ketones Trace mg/dL (Negative) H 06/19/25 22: Salicylates < 1.0 mg/dL (2-20) L 11/15/25 22:32 Acetaminophen < 10 ug/mL (10-30) L 06/19/25 22:32
--- NOTE | 2025-06-20 05:30 | PC.NURSE ---
Patient arrived to room at 0529. Report taken from Eva Morgan prior to transfer.
--- NOTE | 2025-06-20 06:05 | ADMGEN ---
This patient, Yocasta Torres, was admitted to Medical Room 341-01. Patient/family oriented to hospital policies and general routines including ID bracelet, bed and alarms, visiting hours, pain management, procedures, bathroom and other care routines, personal items, smoking policy, room service/diet, and visiting hours. Information on how to activate the Rapid Response Team has been discussed. Patient/Family are encouraged to report perceived risks to care and to ask questions if they do not understand what they are told or what they should do.
--- NOTE | 2025-06-20 06:19 | PC.NURSE ---
Patient noncompliant with tele. Multiple attempts to reapply and patient removes leads and electrode
--- NOTE | 2025-06-20 07:12 | PM.IMPN ---
Progress Note: A&P Assessment and Plan (1) CVA (cerebrovascular accident): Code(s): I63.9 - Cerebral infarction, unspecified Status: Acute Assessment and Plan: - Head/neck CT: Large infarct left temporal and parietal lobes with no hemorrhagic conversion or intracranial hemorrhage and no acute fracture of the c spine - Head/neck CTA: acute infarct involving the left temporal, parietal, and occipital lobes and left insula and expected distribution of left middle cerebral artery. 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 - MRI ordered - Echo ordered - Atorvastatin increased to 80 mg daily - Continue aspirin, appreciate recommendations on initiation of plavix - Initiate stroke protocol, NIH Stroke Scale, neuro's q.4 hours - Monitor CBC, CMP, magnesium, troponin, and lipid profile - Monitor blood pressure, allow for permissive hypertension. - Telemetry monitoring - Monitor blood glucose - PT/OT eval and treat - Neurology consulted, appreciate assistance and recommendations Patient will be continued on aspirin and Plavix Routine EEG to rule out the possibility of the focal seizures Resulting intermittent more confusion Has returned to baseline Aox2 on assessment following some commands. Remans on asa, plavix and statin as above. Awaiting further imaging. (2) UTI (urinary tract infection): Code(s): N39.0 - Urinary tract infection, site not specified Status: Acute Assessment and Plan: - UA on 06/16 concerning for infection, repeat UA nonconcerning for acute infection - UC obtained on 06/16: ecoli with resistance to ampicillin, gentamicin and tetracycline - No previous micro to be reviewed - previously seen in the ED on 06/16 and started on ciprofloxacin for UTI, started on rocephin on 06/21 (3) Diabetes mellitus: Code(s): E11.9 - Type 2 diabetes mellitus without complications Status: Acute Assessment and Plan: - hypoglycemia protocol - POC blood glucose ACHS - home medication - lantus 10 units qAM and 42 units aPM - correct regimen ordered - will hold the lantus 10 units qAM, give 20 units qPM, and start SSI Closely monitor glucose levels, adjust medications accordingly. (4) Pulmonary nodule: Code(s): R91.1 - Solitary pulmonary nodule Status: Acute Assessment and Plan: Head/neck CTA: Pulmonary nodules measuring up to 8 mm, which may be infection or metastatic disease. Lungs clear on auscultation with stable vitals, no associated cough and down trending WBC without abx intervention Plan for outpatient follow up Time Spent With Patient Time with patient: 25 - 35 minutes Subjective Date/time seen: 06/20/25 07:12 Interval history: 75-year-old female with past medical history of hypertension, anemia, diabetes mellitus, hyperlipidemia, Parkinson's, schizophrenia presents to the hospital on 06/19/2025 from [facility] for increased confusion (baseline AOx1-2) and unwitnessed fall and nursing staff reporting she was more confused than usual. Was also seen in the ER on 06/16/2025 for weakness, CT brain showed chronic findings, given antibiotics after being diagnosed a UTI. Patient is pleasant sitting up on side of the bed working with therapy. Per RN patient was increasingly confused earlier this morning however since then she has returned to her baseline AOx2 during assessment. She is following some commands. She has no complaints denying chest pain, palpitations, shortness of breath, nausea/vomiting and abdominal pain. Review of Systems Review of Systems: All systems reviewed & are unremarkable except as noted in HPI and below Exam Narrative: AF HR 98 RR 16 Spo2 100 BP 144/89 General: female in no acute respiratory distress who is nontoxic appearing, sitting up on side of bed. HEENT: Normocephalic. Atraumatic. Pupils equal round reactive to light. Extraocular movement intact. Sclera clear and anicteric. No facial asymmetry. Chest: Lungs are clear to auscultation bilaterally. No wheezes or crackles. CV: Heart was regular rate and rhythm. Abd: Abdomen was soft. Nontender. Nondistended. Positive bowel sounds. Ext: No clubbing, cyanosis, or edema. DP pulses bilaterally. Able to ambulate in room using a walker with OT. No noted foot drop/drag. Neuro: Patient is alert and oriented x2 (person, place). Following some commands. Possible right upper extremity neglect however patient does brush her hair without difficulties. Speech is clear. Objective Data Vital Signs Vital Signs: Vital Signs - 24 hr 06/19/25 18:52 06/19/25 19:39 06/19/25 22:50 Temperature 97.8 F Pulse Rate 94 87 89 Respiratory Rate 16 18 20 Blood Pressure 122/80 109/85 109/65 Pulse Oximetry 95 100 96 Oxygen Delivery Room Air 06/20/25 01:44 06/20/25 05:03 06/20/25 05:52 Temperature 97.9 F Pulse Rate 96 91 98 Respiratory Rate 18 21 H 16 Blood Pressure 116/66 120/90 144/89 H Pulse Oximetry 96 98 100 Oxygen Delivery Intake/Output Intake/Output: Intake & Output 06/17/25 06/18/25 06/19/25 06/20/25 23:59 23:59 23:59 23:59 Intake Total 50 Output Total 75 Balance -75 50 Meds/Results Medications: Active Medications Generic Name Dose Route Start Last Admin Trade Name Ricardoq PRN Reason Stop Dose Admin Aspirin 81 mg 06/20/25 04:30 06/20/25 05:00 Aspirin 81 Mg Enteric Tablet PO 81 mg QAM ELMO Administration Atorvastatin Calcium 80 mg 06/20/25 09:00 Atorvastatin 40 Mg Tablet PO DAILY [facility] Ceftriaxone Sodium 1 gm/ 50 mls @ 100 mls/hr 06/21/25 00:00 Sodium Chloride IVPB Q24H [facility] Radiology Results: ITS Impressions Cervical Spine CT 06/20/25 06:41 IMPRESSION: HEAD: 1. Large infarct left temporal and parietal lobes. 2. No hemorrhagic conversion or intracranial hemorrhage. C-SPINE: 1. No acute fracture. Head CT 06/20/25 06:41 IMPRESSION: HEAD: 1. Large infarct left temporal and parietal lobes. 2. No hemorrhagic conversion or intracranial hemorrhage. C-SPINE: 1. No acute fracture. Labs Labs: Laboratory Results - last 24 hr 06/19/25 06/19/25 06/19/25 22:05 22:32 22:33 WBC 15.7 H RBC 5.33 Hgb 14.4 Hct 43.3 MCV 81.2 MCH 27.0 MCHC 33.3 RDW 12.8 Plt Count 344 MPV 9.7 Immature Gran % (Auto) 0.3 Neut % (Auto) 72.3 Lymph % (Auto) 18.5 [place] % (Auto) 6.4 Eos % (Auto) 1.9 Baso % (Auto) 0.6 Lymph # (Auto) 2.90 [place] # (Auto) 1.0 H Eos # (Auto) 0.3 Baso # (Auto) 0.1 Abs Immat Gran (auto) 0.05 H Absolute Neuts (auto) 11.3 H Absolute Nucleated RBC 0.000 Nucleated RBC % 0.0 PT 13.9 INR 1.1 APTT 28.4 VBG pH 7.441 H* VBG pCO2 33.4 L VBG pO2 40.9 VBG HCO3 22.2 L O2 Delivery Device Room air O2 Liters/Min Not Reportable FiO2 21 Sodium 135 L Potassium 3.9 Chloride 100 Carbon Dioxide 27 Anion Gap 8 BUN 12 Creatinine 0.68 L Estim Creat Clear Calc Not Reportable Estimated GFR > 60 Glucose 213 H Lactic Acid 1.4 Calcium 10.0 Phosphorus 3.0 Magnesium 2.0 Total Bilirubin 0.6 AST 20 ALT 15 Alkaline Phosphatase 97 Total Creatine Kinase 93 Troponin I < 0.012 NT-Pro-B Natriuret Pep 56 Total Protein 7.5 Albumin 4.4 Lipase 39 TSH (Reflex) 1.390 Urine Color Yellow Urine Appearance Clear Urine pH 5.0 Ur Specific [place] 1.023 Urine Protein Trace Urine Glucose (UA) 2+ H Urine Ketones Trace H Ur Blood (Man) Negative Urine Nitrate Negative Urine Bilirubin Negative Urine Urobilinogen 0.2 Add Ur Microanalysis Reviewed Leukocyte Esterase Rfl Negative Urine RBC 0-2 Urine WBC 0-5 Ur Squamous Epith Cells None seen Urine Bacteria None seen Urine Casts 0-2 Urine Mucus Present Salicylates < 1.0 L Urine Opiates Screen Negative Urine Methadone Screen Negative Acetaminophen < 10 L Ur Barbiturates Screen Negative Ur Phencyclidine Scrn Negative Ur Amphetamine Screen Negative U Benzodiazepines Scrn Negative Urine Cocaine Screen Negative U Cannabinoids Screen Negative Ethyl Alcohol < 10 Influenza A (RT-PCR) Negative Influenza B (RT-PCR) Negative RSV (RT-PCR) Negative SARS-CoV-2 RNA (RT-PCR) Negative 06/20/25 00:31 WBC RBC Hgb Hct MCV MCH MCHC RDW Plt Count MPV Immature Gran % (Auto) Neut % (Auto) Lymph % (Auto) [place] % (Auto) Eos % (Auto) Baso % (Auto) Lymph # (Auto) [place] # (Auto) Eos # (Auto) Baso # (Auto) Abs Immat Gran (auto) Absolute Neuts (auto) Absolute Nucleated RBC Nucleated RBC % PT INR APTT VBG pH VBG pCO2 VBG pO2 VBG HCO3 O2 Delivery Device O2 Liters/Min FiO2 Sodium Potassium Chloride Carbon Dioxide Anion Gap BUN Creatinine Estim Creat Clear Calc Estimated GFR Glucose Lactic Acid Calcium Phosphorus Magnesium Total Bilirubin AST ALT Alkaline Phosphatase Total Creatine Kinase Troponin I < 0.012 NT-Pro-B Natriuret Pep Total Protein Albumin Lipase TSH (Reflex) Urine Color Urine Appearance Urine pH Ur Specific [place] Urine Protein Urine Glucose (UA) Urine Ketones Ur Blood (Man) Urine Nitrate Urine Bilirubin Urine Urobilinogen Add Ur Microanalysis Leukocyte Esterase Rfl Urine RBC Urine WBC Ur Squamous Epith Cells Urine Bacteria Urine Casts Urine Mucus Salicylates Urine Opiates Screen Urine Methadone Screen Acetaminophen Ur Barbiturates Screen Ur Phencyclidine Scrn Ur Amphetamine Screen U Benzodiazepines Scrn Urine Cocaine Screen U Cannabinoids Screen Ethyl Alcohol Influenza A (RT-PCR) Influenza B (RT-PCR) RSV (RT-PCR) SARS-CoV-2 RNA (RT-PCR) Quality VTE Prophylaxis VTE prophylaxis: mechanical ordered
[2025-06-20 08:02] LABS: Hematocrit 43.7 % (37.0-47.0); Hemoglobin 13.9 g/dL (12.0-15.0); Immature Granulocyte Percent A 0.5 % (0-0.5); Lymphocytes Absolute Auto 2.38 K/mm3 (0.9-3.2); Mean Corpuscular HGB Conc 31.8 g/dl (32-36); Mean Corpuscular Hemoglobin 26.8 pg (26-34); Mean Corpuscular Volume 84.4 fl (80-100); Nucleated Red Blood Cells Absolute Auto 0.000 K/mm3 (0.0-0.012); Nucleated Red Blood Cells Perc 0.0 % (0.0-0.2); Platelet Count Result 303 k/mm3 (150-375); Red Blood Count 5.18 M/mm3 (4.2-5.4); White Blood Count 13.1 K/mm3 (4.5-10.0)
--- NOTE | 2025-06-20 08:13 | WPDNEURCNPN ---
Assessment and Plan Assessment and plan (1) Diabetes mellitus: Code(s): E11.9 - Type 2 diabetes mellitus without complications Status: Acute (2) Hypertension: Code(s): I10 - Essential (primary) hypertension Status: Acute (3) CVA (cerebrovascular accident): Code(s): I63.9 - Cerebral infarction, unspecified Status: Acute (4) UTI (urinary tract infection): Code(s): N39.0 - Urinary tract infection, site not specified Status: Acute (5) History of movement disorder: Code(s): Z86.69 - Personal history of other diseases of the nervous system and sense organs Status: Acute (6) Hypercholesteremia: Code(s): E78.00 - Pure hypercholesterolemia, unspecified Status: Acute Plan 1. Abnormal CTA with acute infarct involving the left temporal parietal occipital lobe and left insula in the distribution of left middle cerebral artery 2. Documented moderate stenosis of the intracranial right vertebral artery along with the mild stenosis of the proximal left internal carotid and 31% stenosis of proximal right internal carotid. Patient will be continued on aspirin and Plavix while she is being managed on her other medications and also evaluation by the physical therapy. 2. Diabetes mellitus the treatment as being continued 3. Ongoing history of taking Aripiprazole 5mg daily which will be continued at present 4. Routine EEG to rule out the possibility of the focal seizures Resulting intermittent more confusion An echocardiogram if not obtained can be obtained for further clarifications.. Consult date: 06/20/25 HPI: Yocasta Torres is a 75 year old female admitted to the hospital for the complaints of increasing confusion in addition to [facility] Though patient herself was unable to provide any information. Legal guardian mentioned that she was increasingly confused over the last week additionally she was complaining of difficulties in vision. Patient carries the diagnosis of 1. Schizophrenia 2. Diabetes mellitus 3. Parkinson's disease 4. Hypertension and 5. Anemia 6. Allergies to benztropine and penicillin. On initial exam in the emergency room she appeared chronically ill and was oriented only x1, her vital signs were normal, CBC revealed WBC 15.7, BMP with blood sugar of 213 and sodium 135 creatinine only 0.68. Drug screen was negative. His screening for the influenza a, influenza B, RSV, and SARs COVID were negative. Initial CT scan of the head documented large infarct involving the temporoparietal lobes but no hemorrhagic conversion CT scan of cervical spine was negative. CTA documented total occlusion of left M2 middle cerebral artery, moderate stenosis of intracranial right vertebral artery, 31% stenosis of the proximal right internal carotid artery, 5% stenosis of the proximal left internal carotid artery, and incidental finding of pulmonary nodules measuring up to 8mm raising the possibility of infectious versus metastatic disease. At present patient is being treated for UTI, and has been continued on Zyprexa for agitation And antibiotics for the UTI. Review of Systems Review of Systems: All systems reviewed & are unremarkable except as noted in HPI and below PMFSH Past Medical History Medical History Parkinsons Hyperlipidemia Diabetes mellitus Schizophrenia Hypertension Anemia Social History Social History Smoking status: Unknown if ever smoked Alcohol intake: unknown Substance use: unknown Spiritual care concerns: No (AMS) Meds Home Medications and Allergies Home Medications ?Medication ?Instructions ?Recorded ?Confirmed ?Type acetaminophen 325 mg capsule 650 mg PO Q4H PRN pain 06/20/25 06/20/25 History aripiprazole 5 mg tablet 5 mg PO DAILY 06/20/25 06/20/25 History atorvastatin 10 mg tablet 10 mg PO QPM 06/20/25 06/20/25 History benzonatate 100 mg capsule 100 mg PO TID PRN cough 06/20/25 06/20/25 History bisacodyl 10 mg rectal suppository 10 mg RECTAL ONCE PRN constipation 06/20/25 06/20/25 History cholecalciferol (vitamin D3) 25 2,000 unit PO DAILY 06/20/25 06/20/25 History mcg (1,000 unit) capsule ciprofloxacin HCl 250 mg tablet 250 mg PO Q12H 06/20/25 06/20/25 History fenofibrate nanocrystallized 48 mg 48 mg PO DAILY 06/20/25 06/20/25 History tablet fluticasone propionate 50 2 spray intranasal QAM 06/20/25 06/20/25 History mcg/actuation nasal spray,suspension insulin glargine 100 unit/mL 43 unit subcut QPM 06/20/25 06/20/25 History subcutaneous solution (Lantus U-100 Insulin) insulin glargine-yfgn 100 unit/mL 42 unit subcut QPM 06/20/25 06/20/25 History (3 mL) subcutaneous pen insulin glargine-yfgn 100 unit/mL 10 unit subcut QAM 06/20/25 06/20/25 History subcutaneous solution lidocaine 5 % topical patch 1 patch transdermal QAM 06/20/25 06/20/25 History ondansetron HCl 4 mg tablet 4 mg PO Q6H PRN nausea and vomiting 06/20/25 06/20/25 History Allergies Allergy/AdvReac Type Severity Reaction Status Date / Time benztropine Allergy Unknown Verified 06/20/25 06:12 Penicillins Allergy Unknown Verified 06/20/25 06:12 Vital Signs Vital Signs - 24 hr 06/19/25 18:52 06/19/25 19:39 06/19/25 22:50 Temperature 36.6 C Pulse Rate 94 87 89 Respiratory Rate 16 18 20 Blood Pressure 122/80 109/85 109/65 Pulse Oximetry 95 100 96 Oxygen Delivery Room Air 06/20/25 01:44 06/20/25 05:03 06/20/25 05:52 Temperature 36.6 C Pulse Rate 96 91 98 Respiratory Rate 18 21 H 16 Blood Pressure 116/66 120/90 144/89 H Pulse Oximetry 96 98 100 Oxygen Delivery Exam Narrative: Exam this morning revealed her laying in bed supine not spontaneously moving upper and lower extremities, but easily arousable and when asked are you comfortable said yes. His spontaneously she is not moving upper and lower extremities but when stimulated she was able to move upper and lower extremities but more so on the left side, head was normocephalic there were no cranial bruit, ear nose throat examination was normal, neck was supple with no meningeal signs, heart was regular with no murmur, lungs were clear to auscultation, abdomen was soft with no organomegaly, neurologically she was laying supine with eyes closed when unstimulated she open her eyes and when asked are you feeling okay she stated yes but I am cold, his speech was not dysarthric, pupils were round regular, she spontaneously moved her eyes in both horizontal direction, facial grimace was mildly asymmetric with flattening of the nasolabial fold on the right, tongue was in the oral cavity with no fasciculation, motor examination revealed her to have movements of the upper and lower extremities more so on the left side in addition her plantar responses are upgoing on the right. Cerebellar function could not be reliably checked. Results Labs 06/20/25 07:48 06/20/25 07:48 Labs: Short CBC 06/19/25 06/20/25 Range/Units 22:32 07:48 WBC 15.7 H 13.1 H (4.5-10.0) K/mm3 Hgb 14.4 13.9 (12.0-15.0) g/dL Hct 43.3 43.7 (37.0-47.0) % Plt Count 344 303 (150-375) k/mm3 BMP 06/19/25 22:32 Sodium 135 L Potassium 3.9 Chloride 100 Carbon Dioxide 27 BUN 12 Creatinine 0.68 L Glucose 213 H Calcium 10.0 Cardiac Enzymes 06/19/25 06/20/25 Range/Units 22:32 00:31 Total Creatine Kinase 93 (30-135) U/L Troponin I < 0.012 < 0.012 (0.000-0.034) ng/mL Liver Function 06/19/25 Range/Units 22:32 Total Bilirubin 0.6 (0.2-1.3) mg/dL AST 20 (14-36) U/L ALT 15 (6-35) U/L Alkaline Phosphatase 97 (38-126) U/L Albumin 4.4 (3.5-5.1) g/dL Urine 06/19/25 Range/Units 22:33 Urine Color Yellow (Yellow) Urine Appearance Clear (Clear) Urine pH 5.0 (5.0-9.0) Ur Specific [place] 1.023 (1.001-1.035) Urine Protein Trace (Negative) mg/dL Urine Glucose (UA) 2+ H (Negative) mg/dL
[2025-06-20 08:15] LABS: Alanine Aminotransferase 12 U/L (6-35); Albumin Level 4.0 g/dL (3.5-5.1); Alkaline Phosphatase 79 U/L (38-126); Anion Gap 10 mmol/L (4-12); Aspartate Amino Transferase 20 U/L (14-36); Bilirubin,Total 0.7 mg/dL (0.2-1.3); Blood Urea Nitrogen 10 mg/dL (7-17); Calcium 9.5 mg/dL (8.4-10.2); Carbon Dioxide 21 mmol/L (22-30); Chloride 103 mmol/L (98-107); Estimated Glomerular Filt Rate > 60; Glucose 265 mg/dL (65-110); Magnesium 2.3 mg/dL (1.6-2.3); Potassium 4.1 mmol/L (3.4-5.0); Sodium 134 mmol/L (137-145); Total Protein 7.0 g/dL (6.3-8.2)
[2025-06-20 08:46] LABS: Procalcitonin 0.1 ng/mL
[2025-06-20] MEDS: ATORVASTATIN 10 MG TABLET PO (17:26)
[2025-06-20] MEDS: INSULIN ASPART (*BKC) 100 UNITS/ML SUB-Q (17:26)
[2025-06-20] MEDS: INSULIN GLARGINE (*BKC) 100 UNITS/ML 20 UNITS SUB-Q (17:27)
[2025-06-21] VITALS (8 sets, daily range): BP systolic 122–139; BP diastolic 51–86; PULSE 80–96; RESP 16–20; TEMP 36.2–36.6; O2SAT 94–100; BMI 28.6
--- NOTE | 2025-06-21 | ECHO_ITS ---
Patient Info Name: Yocasta Torres Age: 75 years : 1950 Gender: Female Ht: 26 in Wt: 392 lbs BSA: 2.07 m2 HR: 93 bpm BP: 139 / 82 mmHg Heart Rhythm: Sinus Rhythm Technical Quality: Fair Exam Date: 06/21/2025 10:54 AM Patient Status: I Admit Date: 06/20/2025 Exam Type: CA echo doppler w bubble study Complete two-dimensional, color flow and Doppler transthoracic echocardiogram is performed with agitated saline. Staff Referring Physician: Maritza Miller Pediatric Care Coordinator: Steph Cooper Attending Provider: Aleksandra Manjarrez Contrast/Agitated Saline Contrast/Ag. Saline: Agitated Saline Amount: 20.00 ml Existing IV Access: Yes IV Access Condition: patent with no signs of infiltration Summary 1. Left ventricular chamber dimension is normal. 2. Left ventricular systolic function is normal, estimated at 65-70. 3. The left ventricular diastolic function is grade I diastolic dysfunction. 4. E/e' 12 is mildly elevated. 5. Left atrial chamber dimension is moderately enlarged. 6. There is moderate aortic valve sclerosis. 7. No pulmonary hypertension, estimated pulmonary arterial systolic pressure is 23 mmHg. Left Ventricle E/e' 12 is mildly elevated. Left ventricular chamber dimension is normal. Left ventricular systolic function is normal, estimated at 65-70. The left ventricular diastolic function is grade I diastolic dysfunction. Definity contrast administered improved wall motion interpretation. Right Ventricle Right ventricular chamber dimension is normal. Right ventricular systolic function is normal and with normal TAPSE 2.3 cm. Left Atria Left atrial chamber dimension is moderately enlarged. Right Atria Right atrial chamber dimension is normal. Atrial Septum Agitated saline injection with valsalva maneuver opacified right side cardiac chambers without shunt to left side cardiac chambers. Intact interatrial septum visualized by 2D and agitated saline imaging. Aortic Valve The aortic valve is trileaflet. There is moderate aortic valve sclerosis. There is no aortic valve stenosis. There is no aortic valve regurgitation. Pulmonic Valve There is no pulmonic regurgitation. Mitral Valve There is no mitral valve stenosis. There is no mitral valve regurgitation. Tricuspid Valve There is no tricuspid valve regurgitation. No pulmonary hypertension, estimated pulmonary arterial systolic pressure is 23 mmHg. Pericardium/Pleural There is no pericardial effusion. Inferior Vena Cava Normal inferior vena cava with >50% collapse upon inspiration consistent with normal right atrial pressure, 5 mmHg. Aorta The aortic root size at the sinus of Valsalva is normal. Left Ventricular Outflow Tract Name Value Normal LVOT 2D LVOT Diameter 2.0 cm LVOT Doppler LVOT Peak Velocity 103 cm/s LVOT Peak Gradient 4 mmHg LVOT Mean Gradient 2 mmHg LVOT VTI 17 cm LVOT VTI/AV VTI Ratio 0.8 LVOT Stroke Volume 56 ml LVOT CO 4.7 l/min LVOT CI 2.3 l/min/m2 Pulmonic Valve Name Value Normal RVOT Doppler RVOT Peak Velocity 82 cm/s RVOT Peak Gradient 3 mmHg PV Doppler PV Peak Velocity 95 cm/s PV Peak Gradient 4 mmHg Mitral Valve Name Value Normal MV Diastolic Function MV E Peak Velocity 73 cm/s MV A Peak Velocity 113 cm/s MV E/A 0.7 MV Decel Time (PW) 153 ms MV Annular TDI MV E/e' (Septal) 9.7 MV E/e' (Lateral) 16.8 MV E/e' (Average) 13.2 Tricuspid Valve Name Value Normal TV Regurgitation Doppler TR Peak Velocity 210 cm/s TR Peak Gradient 16 mmHg Estimated PAP/RSVP RA Pressure 5 mmHg <=5 PA Systolic Pressure 23 mmHg <36 RV Systolic Pressure 23 mmHg <36 TV Annular TDI TV Lateral Miya s' Velocity 12.3 cm/s >=9.5 Aorta Name Value Normal Ascending Aorta Ao Root Diameter (MM) 2.5 cm Ao Root Diam Index (MM) 1.2 cm/m2 Aortic Valve Name Value Normal AV Doppler AV Peak Velocity 140 cm/s AV Peak Gradient 8 mmHg AV Mean Gradient 4 mmHg AV VTI 20 cm AV Area (Cont Eq VTI) 2.7 cm2 >=3.0 AV Area (Cont Eq David) 2.4 cm2 AV DI (David) 0.74 AV Regurgitation 2D LVOT Area 3.3 cm2 Ventricles Name Value Normal LV Dimensions 2D/MM IVS Diastolic Thickness (2D) 1.1 cm 0.6-1.0 LVID Diastole (2D) 4.2 cm 3.8-5.2 LVIW Diastolic Thickness (2D) 1.0 cm 0.6-0.9 LVID Systole (2D) 2.7 cm 2.2-3.5 LVOT Diameter 2.0 cm LV Mass (2D Cubed) 146.39 g 67.00-162.00 LV Mass Index (2D Cubed) 71 g/m2 43-95 Relative Wall Thickness (2D) 0.48 <=0.42 LV Fractional Shortening/Ejection Fraction 2D/MM LV Fractional Shortening (2D) 36 % 27-45 LV EF (2D Teichholz) 66 % LV Diastolic Volume (4C MOD) 53 ml LV EF (4C MOD) 62 % LV Diastolic Volume (2C MOD) 53 ml LV EF (2C MOD) 59 % LV Diastolic Volume (BP MOD) 53 ml 46-106 LV Diastolic Volume Index (BP MOD) 26 ml/m2 29-61 LV Systolic Volume (BP MOD) 21 ml 14-42 LV Systolic Volume Index (BP MOD) 10 ml/m2 8-24 LV EF (BP MOD) 61 % 54-74 LV Diastolic Length (4C) 8.2 cm LV Systolic Length (4C) 7.1 cm LV Stroke Volume (4C MOD) 33 ml Atria Name Value Normal LA Dimensions LA Dimension (MM) 4.5 cm 2.7-3.8 LA Volume (4C A-L) 45 ml LA Volume (BP A-L) 54 ml RA Dimensions RA Area (4C) 12.3 cm2 <=18.0 Report Signatures Amended by Parveen Benitez DO on 06/21/2025 02:51 PM
[2025-06-21] MEDS: cefTRIAXone 1 GM in SODIUM CHLORIDE 0.9% IV 50 ML 100 ML IVPB ×2 (00:53→23:47)
[2025-06-21 05:00] LABS: Hematocrit 41.7 % (37.0-47.0); Hemoglobin 13.9 g/dL (12.0-15.0); Mean Corpuscular HGB Conc 33.3 g/dl (32-36); Mean Corpuscular Hemoglobin 27.0 pg (26-34); Mean Corpuscular Volume 81.1 fl (80-100); Platelet Count Result 343 k/mm3 (150-375); Red Blood Count 5.14 M/mm3 (4.2-5.4); White Blood Count 11.0 K/mm3 (4.5-10.0)
[2025-06-21 05:23] LABS: Alanine Aminotransferase 12 U/L (6-35); Albumin Level 4.1 g/dL (3.5-5.1); Alkaline Phosphatase 93 U/L (38-126); Anion Gap 7 mmol/L (4-12); Aspartate Amino Transferase 19 U/L (14-36); Bilirubin,Total 0.5 mg/dL (0.2-1.3); Blood Urea Nitrogen 12 mg/dL (7-17); Calcium 9.7 mg/dL (8.4-10.2); Carbon Dioxide 26 mmol/L (22-30); Chloride 103 mmol/L (98-107); Estimated Glomerular Filt Rate > 60; Glucose 237 mg/dL (65-110); Potassium 3.9 mmol/L (3.4-5.0); Sodium 136 mmol/L (137-145); Total Protein 7.2 g/dL (6.3-8.2)
--- NOTE | 2025-06-21 08:02 | PCOTNOTE ---
The patient treatment was not able to be completed. Difficult to arouse, RN reports she was up most of the night. Will plan to continue treatment per plan of care.
--- NOTE | 2025-06-21 08:53 | PM.IMPN ---
Progress Note: A&P Assessment and Plan (1) CVA (cerebrovascular accident): Code(s): I63.9 - Cerebral infarction, unspecified Status: Acute Assessment and Plan: - Head/neck CT: Large infarct left temporal and parietal lobes with no hemorrhagic conversion or intracranial hemorrhage and no acute fracture of the c spine - Head/neck CTA: acute infarct involving the left temporal, parietal, and occipital lobes and left insula and expected distribution of left middle cerebral artery. 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 - MRI unable to be obtained as unknown history of stents - Echo with LVEF 65-70% with grade I diastolic dysfunction - Lipid panel ordered. Atorvastatin increased to 40 mg daily, consider zetia - Continue aspirin, appreciate recommendations on initiation of plavix - Initiate stroke protocol, NIH Stroke Scale, neuro's q.4 hours - Monitor CBC, CMP, magnesium, troponin, and lipid profile - Monitor blood pressure, allow for permissive hypertension. - Telemetry monitoring - Monitor blood glucose - PT/OT eval and treat - Neurology consulted, appreciate assistance and recommendations Patient will be continued on aspirin and Plavix Routine EEG to rule out the possibility of the focal seizures resulting intermittent more confusion Remains at baseline Aox2 on assessment following some commands. Remans on asa, plavix and statin as above. Given confusion and patient attempting to repeatedly get out of bed a sitter was placed in the room. Per care coordination patient will need to be sitter free for 24 hours prior to discharge back to facility. (2) UTI (urinary tract infection): Code(s): N39.0 - Urinary tract infection, site not specified Status: Acute Assessment and Plan: - UA on 06/16 concerning for infection, repeat UA nonconcerning for acute infection - UC obtained on 06/16: ecoli with resistance to ampicillin, gentamicin and tetracycline - No previous micro to be reviewed - previously seen in the ED on 06/16 and started on ciprofloxacin for UTI, started on Rocephin on admission. Completed the course of antibiotics on 06/21. (3) Diabetes mellitus: Code(s): E11.9 - Type 2 diabetes mellitus without complications Status: Acute Assessment and Plan: - hypoglycemia protocol - POC blood glucose ACHS - home medication - lantus 10 units qAM and 42 units aPM - correct regimen ordered - will hold the lantus 10 units qAM, give 30 units qPM, and start SSI Glucose remains elevated. Will increase Lantus to 30 units qPM. A1c ordered. Closely monitor glucose levels, adjust medications accordingly. (4) Pulmonary nodule: Code(s): R91.1 - Solitary pulmonary nodule Status: Acute Assessment and Plan: Head/neck CTA: Pulmonary nodules measuring up to 8 mm, which may be infection or metastatic disease. Lungs clear on auscultation with stable vitals, no associated cough and down trending WBC without abx intervention Plan for outpatient follow up Time Spent With Patient Time with patient: 25 - 35 minutes Subjective Date/time seen: 06/21/25 08:53 Interval history: 75-year-old female with past medical history of hypertension, anemia, diabetes mellitus, hyperlipidemia, Parkinson's, schizophrenia presents to the hospital on 06/19/[address] [facility] for increased confusion (baseline AOx1-2) and unwitnessed fall and nursing staff reporting she was more confused than usual. Was also seen in the ER on 06/16/2025 for weakness, CT brain showed chronic findings, given antibiotics after being diagnosed a UTI. Patient is pleasant sitting up in bed. She remains AOx2 at time of assessment. She has no complaints denying chest pain, palpitations, shortness of breath, nausea/vomiting and abdominal pain. Per RN no acute events overnight. Review of Systems Review of Systems: All systems reviewed & are unremarkable except as noted in HPI and below Exam Narrative: AF HR 87 RR 16 SpO2 98 BP 139/86 General: female in no acute respiratory distress who is nontoxic appearing, sitting up in bed HEENT: Normocephalic. Atraumatic. Extraocular movement intact. Sclera clear and anicteric. No facial asymmetry. Chest: Lungs are clear to auscultation bilaterally. No wheezes or crackles. CV: Heart was regular rate and rhythm. Abd: Abdomen was soft. Nontender. Nondistended. Positive bowel sounds. Ext: No clubbing, cyanosis, or edema. DP pulses bilaterally. Neuro: Patient is alert and oriented x2 (person, place). Following some commands. Possible right upper extremity neglect with noted right upper extremity drift. Sensation and movement to the lower extremities remains intact, symmetrical strength. Objective Data Vital Signs Vital Signs: Vital Signs - 24 hr 06/20/25 11:26 06/20/25 12:53 06/20/25 14:00 Temperature 96.9 F L Pulse Rate 72 Respiratory Rate 14 Blood Pressure 130/102 H Pulse Oximetry 93 Oxygen Delivery Room Air Room Air 06/20/25 16:00 06/20/25 20:00 06/21/25 00:00 Temperature 96.9 F L 97.5 F L 97.5 F L Pulse Rate 95 96 92 Respiratory Rate 16 18 20 Blood Pressure 126/84 126/62 122/68 Pulse Oximetry 100 99 100 Oxygen Delivery 06/21/25 04:00 06/21/25 04:00 Temperature 97.9 F Pulse Rate 90 93 Respiratory Rate 20 Blood Pressure 139/82 Pulse Oximetry 100 Oxygen Delivery Intake/Output Intake/Output: Intake & Output 06/18/25 06/19/25 06/20/25 06/21/25 23:59 23:59 23:59 23:59 Intake Total 1210 200 Output Total 75 Balance -75 1210 200 Meds/Results Medications: Active Medications Generic Name Dose Route Start Last Admin Trade Name Freq PRN Reason Stop Dose Admin Acetaminophen 650 mg 06/20/25 13:46 Acetaminophen 325 Mg Tablet PO Q4H PRN Pain Aripiprazole 5 mg 06/21/25 09:00 Aripiprazole 5 Mg Tablet PO DAILY ELMO Aspirin 81 mg 06/20/25 04:30 06/20/25 05:00 Aspirin 81 Mg Enteric Tablet PO 81 mg QAM ELMO Administration Atorvastatin Calcium 80 mg 06/20/25 09:00 06/20/25 10:22 Atorvastatin 40 Mg Tablet PO Not Given DAILY ELMO Atorvastatin Calcium 10 mg 06/20/25 18:00 06/20/25 17:26 Atorvastatin 10 Mg Tablet PO 10 mg QPM ELMO Administration Benzonatate 100 mg 06/20/25 13:46 Benzonatate 100 Mg Capsule PO TID PRN Cough Clopidogrel Bisulfate 75 mg 06/21/25 09:00 Clopidogrel Bisulfate 75 Mg Tablet PO QAM ELMO Dextrose 12.5 gm 06/20/25 13:51 Dextrose 50% 25 Gm/50 Ml Syringe IV PUSH PRN PRN Hypoglycemia Protocol Fenofibrate 48 mg 06/21/25 09:00 Fenofibrate 48 Mg Tablet PO DAILY ELMO Glucagon 1 mg 06/20/25 13:51 Glucagon For Inj 1 Mg Vial IM PRN PRN Hypoglycemia Protocol Glucose 15 gm 06/20/25 13:51 Glucose Oral Gel 15 Gm Of Glucse In 37.5 Gm Tube PO PRN PRN Hypoglycemia Protocol Ceftriaxone Sodium 1 gm/ 50 mls @ 100 mls/hr 06/21/25 00:00 06/21/25 00:53 Sodium Chloride IVPB 100 mls/hr Q24H ELMO Administration Dextrose 1,000 mls @ 100 mls/hr 06/20/25 13:51 Dextrose 5% 1,000 Ml IVPB PRN PRN Hypoglycemia Protocol Insulin Aspart 2 - 5 units 06/20/25 17:00 06/20/25 17:26 Insulin Aspart (*Bkc) 100 Units/Ml SUB-Q 4 units TIDWM ELMO Administration Protocol Insulin Glargine 20 units 06/20/25 18:00 06/20/25 17:27 Insulin Glargine (*Bkc) 100 Units/Ml SUB-Q 20 units QPM ELMO Administration Lidocaine 2 patch 06/20/25 09:00 06/20/25 17:31 Lidocaine 5% Patch TRANSDERM Not Given QAM ELMO Ondansetron HCl 4 mg 06/20/25 13:46 Ondansetron Hcl Odt 4 Mg Tablet PO Q6H PRN Nausea And Vomiting Perflutren Lipid Microsphere 0 ml 06/20/25 07:26 Perflutren Lipid Microspheres 1.5 Ml Vial Diluted To 10 Ml Total Volume IV PUSH 06/23/25 07:27 ONCE PRN adequate visualization Protocol Radiology Results: ITS Impressions Cervical Spine CT 06/20/25 06:41 IMPRESSION: HEAD: 1. Large infarct left temporal and parietal lobes. 2. No hemorrhagic conversion or intracranial hemorrhage. C-SPINE: 1. No acute fracture. Head CT 06/20/25 06:41 IMPRESSION: HEAD: 1. Large infarct left temporal and parietal lobes. 2. No hemorrhagic conversion or intracranial hemorrhage. C-SPINE: 1. No acute fracture. Head/Neck CTA 06/20/25 07:17 IMPRESSION: 1. Acute infarct involving the left temporal, parietal, and occipital lobes and left insula and expected distribution of left middle cerebral artery. 2. Moderate nonspecific cerebral white matter disease, which likely represents chronic small vessel ischemic disease. 3. 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 4. 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 5. 31% stenosis of the proximal right internal carotid artery relative to normal distal artery lumen diameter (NASCET criteria). 6. 5% stenosis of the proximal left internal carotid artery relative to normal distal artery lumen diameter. 7. Pulmonary nodules measuring up to 8 mm, which may be infection or metastatic disease. Chest X-Ray 06/20/25 10:38 IMPRESSION: 1. No acute cardiopulmonary findings given portable technique. Labs Labs: Laboratory Results - last 24 hr 06/20/25 06/20/25 06/21/25 16:42 20:32 04:49 WBC 11.0 H RBC 5.14 Hgb 13.9 Hct 41.7 MCV 81.1 MCH 27.0 MCHC 33.3 RDW 12.9 Plt Count 343 MPV 9.4 Sodium 136 L Potassium 3.9 Chloride 103 Carbon Dioxide 26 Anion Gap 7 BUN 12 Creatinine 0.70 Estim Creat Clear Calc Not Reportable Estimated GFR > 60 Glucose 237 H POC Capillary Glucose 314 H 262 H Calcium 9.7 Total Bilirubin 0.5 AST 19 ALT 12 Alkaline Phosphatase 93 Total Protein 7.2 Albumin 4.1 06/21/25 08:30 WBC RBC Hgb Hct MCV MCH MCHC RDW Plt Count MPV Sodium Potassium Chloride Carbon Dioxide Anion Gap BUN Creatinine Estim Creat Clear Calc Estimated GFR Glucose POC Capillary Glucose 279 H Calcium Total Bilirubin AST ALT Alkaline Phosphatase Total Protein Albumin Quality VTE Prophylaxis VTE prophylaxis: mechanical ordered
[2025-06-21] MEDS: ATORVASTATIN 40 MG TABLET 80 MG PO (09:32)
[2025-06-21] MEDS: ASPIRIN 81 MG ENTERIC TABLET PO (09:33)
[2025-06-21] MEDS: CLOPIDOGREL BISULFATE 75 MG TABLET PO (09:33)
[2025-06-21] MEDS: LIDOCAINE 5% PATCH 2 PATCH TRANSDERM (09:33)
[2025-06-21] MEDS: FENOFIBRATE 48 MG TABLET PO (09:33)
[2025-06-21] MEDS: INSULIN ASPART (*BKC) 100 UNITS/ML SUB-Q ×3 (09:34→17:33)
--- NOTE | 2025-06-21 10:00 | PCSTNOTE ---
Please refer to the Bedside Swallow Evaluation in the EMR. Please note, silent aspiration cannot be ruled out at bedside.
--- NOTE | 2025-06-21 14:27 | PCOTNOTE ---
Attempted to see Patient at this time. Patient refused to participate, states she is sleeping, already did therapy and has all her needs done. Not today, come tomorrow.
--- NOTE | 2025-06-21 15:50 | PCNEURO ---
Asked patient if I cold perform EEG and she said no, maybe later and then tried getting out of bed. Will attempt in the morning.
[2025-06-21 18:08] LABS: Cholesterol 113 mg/dL (0-200); HDL Direct 41 mg/dL; Triglycerides 123 mg/dL (<150)
[2025-06-21 18:14] LABS: Hemoglobin A1C 8.5 % (<5.7)
[2025-06-21] MEDS: OLANZapine ODT DISPERTAB 5 MG PO (20:58)
[2025-06-21] MEDS: INSULIN GLARGINE (*BKC) 100 UNITS/ML 30 UNITS SUB-Q (21:07)
[2025-06-22] VITALS: BP 120/58; PULSE 95; RESP 20; TEMP 37.1; O2SAT 100
--- NOTE | 2025-06-22 00:52 | PC.NURSE ---
Patient continues to resist care, is oriented at this time to person and will not keep telemetry in place. Staff has attempted to replace leads upwards of 5 times this shift.
[2025-06-22 04:00] VITALS: BP 132/83; PULSE 100; RESP 18; TEMP 36.7; O2SAT 98
[2025-06-22 05:10] LABS: Hematocrit 40.5 % (37.0-47.0); Hemoglobin 13.3 g/dL (12.0-15.0); Mean Corpuscular HGB Conc 32.8 g/dl (32-36); Mean Corpuscular Hemoglobin 26.8 pg (26-34); Mean Corpuscular Volume 81.5 fl (80-100); Platelet Count Result 338 k/mm3 (150-375); Red Blood Count 4.97 M/mm3 (4.2-5.4); White Blood Count 11.2 K/mm3 (4.5-10.0)
[2025-06-22 05:31] LABS: Alanine Aminotransferase 12 U/L (6-35); Albumin Level 3.9 g/dL (3.5-5.1); Alkaline Phosphatase 79 U/L (38-126); Anion Gap 7 mmol/L (4-12); Aspartate Amino Transferase 21 U/L (14-36); Bilirubin,Total 0.4 mg/dL (0.2-1.3); Blood Urea Nitrogen 12 mg/dL (7-17); Calcium 9.3 mg/dL (8.4-10.2); Carbon Dioxide 23 mmol/L (22-30); Chloride 104 mmol/L (98-107); Estimated CRCL calculation 74 ml/min; Estimated Glomerular Filt Rate > 60; Glucose 279 mg/dL (65-110); Magnesium 2.3 mg/dL (1.6-2.3); Potassium 3.8 mmol/L (3.4-5.0); Sodium 134 mmol/L (137-145); Total Protein 6.7 g/dL (6.3-8.2)
--- NOTE | 2025-06-22 08:20 | P.PNIM_ITS ---
Progress Note: A&P Assessment and Plan (1) CVA (cerebrovascular accident): Code(s): I63.9 - Cerebral infarction, unspecified Status: Acute Assessment and Plan: - Head/neck CT: Large infarct left temporal and parietal lobes with no hemorrhagic conversion or intracranial hemorrhage and no acute fracture of the c spine - Head/neck CTA: acute infarct involving the left temporal, parietal, and occipital lobes and left insula and expected distribution of left middle cerebral artery. 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 - MRI unable to be obtained as unknown history of stents - Echo with LVEF 65-70% with grade I diastolic dysfunction - Lipid panel ordered. Atorvastatin increased to 40 mg daily, consider zetia - Continue aspirin, appreciate recommendations on initiation of plavix - Initiate stroke protocol, NIH Stroke Scale, neuro's q.4 hours - Monitor CBC, CMP, magnesium, troponin, and lipid profile - Monitor blood pressure, allow for permissive hypertension. - Telemetry monitoring - Monitor blood glucose - PT/OT eval and treat - Neurology consulted, appreciate assistance and recommendations Patient will be continued on aspirin and Plavix Routine EEG to rule out the possibility of the focal seizures resulting intermittent more confusion : unremarkable Remains at baseline Aox2 on assessment following some commands. Remains on asa, Plavix and statin as above. Given confusion and patient attempting to repeatedly get out of bed a sitter was placed in the room on 06/21. Per care coordination patient will need to be sitter free for 24 hours prior to discharge back to facility. Per RN patient has been more calm today, will attempt to remove sitter and closely monitor patient. (2) UTI (urinary tract infection): Code(s): N39.0 - Urinary tract infection, site not specified Status: Acute Assessment and Plan: - UA on 06/16 concerning for infection, repeat UA nonconcerning for acute infection - UC obtained on 06/16: ecoli with resistance to ampicillin, gentamicin and tetracycline - No previous micro to be reviewed - previously seen in the ED on 06/16 and started on ciprofloxacin for UTI, started on Rocephin on admission. Completed the course of antibiotics on 06/21. (3) Diabetes mellitus: Code(s): E11.9 - Type 2 diabetes mellitus without complications Status: Acute Assessment and Plan: - hypoglycemia protocol - POC blood glucose ACHS - home medication - lantus 10 units qAM and 42 units aPM - correct regimen ordered - will hold the lantus 10 units qAM, give 42 units qHS and start SSI Glucose remains elevated. Will increase Lantus to home dose. A1c 8.1. Closely monitor glucose levels, adjust medications accordingly. (4) Pulmonary nodule: Code(s): R91.1 - Solitary pulmonary nodule Status: Acute Assessment and Plan: Head/neck CTA: Pulmonary nodules measuring up to 8 mm, which may be infection or metastatic disease. Lungs clear on auscultation with stable vitals, no associated cough and down trending WBC without abx intervention Plan for outpatient follow up Time Spent With Patient Time with patient: 25 - 35 minutes Subjective Date/time seen: 06/22/25 08:20 Interval history: 75-year-old female with past medical history of hypertension, anemia, diabetes mellitus, hyperlipidemia, Parkinson's, schizophrenia presents to the hospital on 06/19/2025 from [facility] for increased confusion (baseline AOx1-2) and unwitnessed fall and nursing staff reporting she was more confused than usual. Was also seen in the ER on 06/16/2025 for weakness, CT brain showed chronic findings, given antibiotics after being diagnosed a UTI. Patient pleasant lying comfortably in bed. She remains AOx2 but noticeably confused on further assessment. She has no complaints denying chest pain, palpitations, shortness of breath, nausea/vomiting, abdominal pain. Review of Systems Review of Systems: All systems reviewed & are unremarkable except as noted in HPI and below Exam Narrative: AF HR 100 RR 18 SPO2 98 BP 132/83 General: female in no acute respiratory distress who is nontoxic appearing, lying semirecumbent in bed. HEENT: Normocephalic. Atraumatic. Extraocular movement intact. Sclera clear and anicteric. No facial asymmetry. Chest: Lungs are clear to auscultation bilaterally. No wheezes or crackles. CV: Heart was regular rate and rhythm. Abd: Abdomen was soft. Nontender. Nondistended. Positive bowel sounds. Ext: No clubbing, cyanosis, or edema. DP pulses bilaterally. Neuro: Patient is alert and oriented x2 (person, place). Following some commands, not very compliant with exam. Possible right upper extremity neglect with noted right upper extremity drift. Sensation and movement to the lower extremities remains intact, symmetrical strength. Speech is clear. Objective Data Vital Signs Vital Signs: Vital Signs - 24 hr 06/21/25 09:30 06/21/25 10:48 06/21/25 12:00 Temperature 97.2 F L Pulse Rate 87 Respiratory Rate 16 Blood Pressure 139/86 Pulse Oximetry 100 96 98 Oxygen Delivery Room Air Room Air 06/21/25 12:00 06/21/25 16:00 06/21/25 16:00 Temperature 97.1 F L Pulse Rate 87 95 89 Respiratory Rate 18 Blood Pressure 136/51 L Pulse Oximetry 100 Oxygen Delivery 06/21/25 20:00 06/22/25 00:00 06/22/25 04:00 Temperature 97.6 F 98.8 F 98.1 F Pulse Rate 95 95 100 Respiratory Rate 20 20 18 Blood Pressure 131/64 120/58 L 132/83 Pulse Oximetry 96 100 98 Oxygen Delivery Intake/Output Intake/Output: Intake & Output 06/19/25 06/20/25 06/21/25 06/22/25 23:59 23:59 23:59 23:59 Intake Total 1210 1247 50 Output Total 75 0 Balance -75 1210 1247 50 Meds/Results Medications: Active Medications Generic Name Dose Route Start Last Admin Trade Name Freq PRN Reason Stop Dose Admin Acetaminophen 650 mg 06/20/25 13:46 Acetaminophen 325 Mg Tablet PO Q4H PRN Pain Aripiprazole 5 mg 06/21/25 09:00 06/21/25 09:33 Aripiprazole 5 Mg Tablet PO 5 mg DAILY ELMO Administration Aspirin 81 mg 06/20/25 04:30 06/21/25 09:33 Aspirin 81 Mg Enteric Tablet PO 81 mg QAM ELMO Administration Atorvastatin Calcium 40 mg 06/22/25 09:00 Atorvastatin 40 Mg Tablet PO DAILY ELMO Benzonatate 100 mg 06/20/25 13:46 Benzonatate 100 Mg Capsule PO TID PRN Cough Clopidogrel Bisulfate 75 mg 06/22/25 09:00 Clopidogrel Bisulfate 75 Mg Tablet PO QAM ELMO Dextrose 12.5 gm 06/20/25 13:51 Dextrose 50% 25 Gm/50 Ml Syringe IV PUSH PRN PRN Hypoglycemia Protocol Fenofibrate 48 mg 06/21/25 09:00 06/21/25 09:33 Fenofibrate 48 Mg Tablet PO 48 mg DAILY ELMO Administration Glucagon 1 mg 06/20/25 13:51 Glucagon For Inj 1 Mg Vial IM PRN PRN Hypoglycemia Protocol Glucose 15 gm 06/20/25 13:51 Glucose Oral Gel 15 Gm Of Glucse In 37.5 Gm Tube PO PRN PRN Hypoglycemia Protocol Ceftriaxone Sodium 1 gm/ 50 mls @ 100 mls/hr 06/21/25 00:00 06/21/25 23:47 Sodium Chloride IVPB 100 mls/hr Q24H ELMO Administration Dextrose 1,000 mls @ 100 mls/hr 06/20/25 13:51 Dextrose 5% 1,000 Ml IVPB PRN PRN Hypoglycemia Protocol Insulin Aspart 2 - 5 units 06/20/25 17:00 06/21/25 17:33 Insulin Aspart (*Bkc) 100 Units/Ml SUB-Q 3 units TIDWM ELMO Administration Protocol Insulin Glargine 30 units 06/21/25 21:00 06/21/25 21:07 Insulin Glargine (*Bkc) 100 Units/Ml SUB-Q 30 units HS ELMO Administration Lidocaine 2 patch 06/20/25 09:00 06/21/25 09:33 Lidocaine 5% Patch TRANSDERM 2 patch QAM ELMO Administration Olanzapine 5 mg 06/21/25 21:00 06/21/25 20:58 Olanzapine Odt Dispertab 5 Mg PO 5 mg BEDTIME ELMO Administration Ondansetron HCl 4 mg 06/20/25 13:46 Ondansetron Hcl Odt 4 Mg Tablet PO Q6H PRN Nausea And Vomiting Perflutren Lipid Microsphere 0 ml 06/20/25 07:26 Perflutren Lipid Microspheres 1.5 Ml Vial Diluted To 10 Ml Total Volume IV PUSH 06/23/25 07:27 ONCE PRN adequate visualization Protocol Radiology Results: ITS Impressions Cervical Spine CT 06/20/25 06:41 IMPRESSION: HEAD: 1. Large infarct left temporal and parietal lobes. 2. No hemorrhagic conversion or intracranial hemorrhage. C-SPINE: 1. No acute fracture. Head CT 06/20/25 06:41 IMPRESSION: HEAD: 1. Large infarct left temporal and parietal lobes. 2. No hemorrhagic conversion or intracranial hemorrhage. C-SPINE: 1. No acute fracture. Head/Neck CTA 06/20/25 07:17 IMPRESSION: 1. Acute infarct involving the left temporal, parietal, and occipital lobes and left insula and expected distribution of left middle cerebral artery. 2. Moderate nonspecific cerebral white matter disease, which likely represents chronic small vessel ischemic disease. 3. 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 4. 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 5. 31% stenosis of the proximal right internal carotid artery relative to normal distal artery lumen diameter (NASCET criteria). 6. 5% stenosis of the proximal left internal carotid artery relative to normal distal artery lumen diameter. 7. Pulmonary nodules measuring up to 8 mm, which may be infection or metastatic disease. Chest X-Ray 06/20/25 10:38 IMPRESSION: 1. No acute cardiopulmonary findings given portable technique. Labs Labs: Laboratory Results - last 24 hr 06/21/25 06/21/25 06/21/25 04:45 08:30 11:44 WBC RBC Hgb Hct MCV MCH MCHC RDW Plt Count MPV Sodium Potassium Chloride Carbon Dioxide Anion Gap BUN Creatinine Estim Creat Clear Calc Estimated GFR Glucose POC Capillary Glucose 279 H 241 H Hemoglobin A1c 8.5 H Calcium Phosphorus Magnesium Total Bilirubin AST ALT Alkaline Phosphatase Total Protein Albumin Triglycerides 123 Cholesterol 113 LDL Cholesterol Direct 49 HDL Direct 41 06/21/25 06/21/25 06/22/25 16:45 21:04 04:54 WBC 11.2 H RBC 4.97 Hgb 13.3 Hct 40.5 MCV 81.5 MCH 26.8 MCHC 32.8 RDW 12.8 Plt Count 338 MPV 9.5 Sodium 134 L Potassium 3.8 Chloride 104 Carbon Dioxide 23 Anion Gap 7 BUN 12 Creatinine 0.62 L Estim Creat Clear Calc 74 Estimated GFR > 60 Glucose 279 H POC Capillary Glucose 288 H 303 H Hemoglobin A1c Calcium 9.3 Phosphorus 2.8 Magnesium 2.3 Total Bilirubin 0.4 AST 21 ALT 12 Alkaline Phosphatase 79 Total Protein 6.7 Albumin 3.9 Triglycerides Cholesterol LDL Cholesterol Direct HDL Direct Quality VTE Prophylaxis VTE prophylaxis: mechanical ordered
--- NOTE | 2025-06-22 09:25 | PCPTNOTE ---
The patient treatment was not able to be completed at this time due to patient having EEG test bedside. Will plan to continue treatment per plan of care.
[2025-06-22 10:10] VITALS: PULSE 100
[2025-06-22] MEDS: LIDOCAINE 5% PATCH 2 PATCH TRANSDERM (10:10)
[2025-06-22] MEDS: ASPIRIN 81 MG ENTERIC TABLET PO (10:10)
[2025-06-22] MEDS: CLOPIDOGREL BISULFATE 75 MG TABLET PO (10:10)
[2025-06-22] MEDS: FENOFIBRATE 48 MG TABLET PO (10:10)
[2025-06-22] MEDS: ATORVASTATIN 40 MG TABLET PO (10:10)
[2025-06-22] MEDS: INSULIN ASPART (*BKC) 100 UNITS/ML SUB-Q ×3 (10:12→18:09)
--- NOTE | 2025-06-22 12:46 | WPDNEUROLOGY ---
Neurology EEG Report General Information Date of Study: 06/22/25 TEST EEG DIAGNOSIS Acute mental status changes rule out the possibility of seizure. CONDITION OF RECORDING Awake, drowsy and asleep. EEG NUMBER [id number] CLINICAL HISTORY 75 years old female admitted for increasing confusion after unwitnessed fall. Guardian stated that she was increasingly confused over the last week and complaining of difficulty with her vision particularly in her right eye. Patient becomes agitated and confused off and on, but was cooperative with tracing and some of recording. The patient became agitated when she wanted to go to the bathroom and could not wait anymore, so the industrial ecology technician had to stop the EEG. EEG DESCRIPTION Background rhythm consists of low-voltage 15 to 21 hertz per 2nd beta admixed with multiple movement artifacts. Hyperventilation not done. Photic stimulation not done. Throughout the tracing multiple movement artifacts are noted. Bilateral symmetrical sleep activity is noted. Non paroxysmal. Nonfocal nonlateralizing. IMPRESSION No significant abnormalities noted. Clinical correlation recommended. A normal EEG does not rule out the possibility of seizure and this tracing does not show any paroxysmal activity or focal slowing
[2025-06-22 16:30] VITALS: BP 114/65; PULSE 91; RESP 18; TEMP 36.2; O2SAT 95
--- NOTE | 2025-06-22 17:21 | PC.NURSE ---
Patient continues to refuse to wear heart rate monitor and keeps pulling off stickers and electrodes, provider aware. Sitter discontinued at 1500 on 06/22/2025 per hospitalist.
[2025-06-22 19:45] VITALS: BP 125/65; PULSE 65; RESP 17; TEMP 36.4; O2SAT 95
[2025-06-22 22:47] VITALS: O2SAT 95
[2025-06-22] MEDS: cefTRIAXone 1 GM in SODIUM CHLORIDE 0.9% IV 50 ML 100 ML IVPB (22:59)
[2025-06-22] MEDS: OLANZapine ODT DISPERTAB 5 MG PO (23:00)
[2025-06-22] MEDS: INSULIN GLARGINE (*BKC) 100 UNITS/ML 42 UNITS SUB-Q (23:02)
[2025-06-23 06:47] LABS: Hematocrit 42.2 % (37.0-47.0); Hemoglobin 13.8 g/dL (12.0-15.0); Mean Corpuscular HGB Conc 32.7 g/dl (32-36); Mean Corpuscular Hemoglobin 26.7 pg (26-34); Mean Corpuscular Volume 81.8 fl (80-100); Platelet Count Result 358 k/mm3 (150-375); Red Blood Count 5.16 M/mm3 (4.2-5.4); White Blood Count 10.1 K/mm3 (4.5-10.0)
[2025-06-23 07:16] LABS: Alanine Aminotransferase 12 U/L (6-35); Albumin Level 3.7 g/dL (3.5-5.1); Alkaline Phosphatase 87 U/L (38-126); Anion Gap 6 mmol/L (4-12); Aspartate Amino Transferase 29 U/L (14-36); Bilirubin,Total 0.5 mg/dL (0.2-1.3); Blood Urea Nitrogen 14 mg/dL (7-17); Calcium 9.7 mg/dL (8.4-10.2); Carbon Dioxide 27 mmol/L (22-30); Chloride 103 mmol/L (98-107); Estimated CRCL calculation 65 ml/min; Estimated Glomerular Filt Rate > 60; Glucose 248 mg/dL (65-110); Potassium 4.1 mmol/L (3.4-5.0); Sodium 136 mmol/L (137-145); Total Protein 6.5 g/dL (6.3-8.2)
--- NOTE | 2025-06-23 08:36 | PM.IMPN ---
Progress Note: A&P Assessment and Plan (1) CVA (cerebrovascular accident): Code(s): I63.9 - Cerebral infarction, unspecified Status: Acute Assessment and Plan: - Head/neck CT: Large infarct left temporal and parietal lobes with no hemorrhagic conversion or intracranial hemorrhage and no acute fracture of the c spine - Head/neck CTA: acute infarct involving the left temporal, parietal, and occipital lobes and left insula and expected distribution of left middle cerebral artery. 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 - MRI unable to be obtained as unknown history of stents - Echo with LVEF 65-70% with grade I diastolic dysfunction - Lipid panel ordered. Atorvastatin increased to 40 mg daily, consider zetia - Continue aspirin, appreciate recommendations on initiation of plavix - Initiate stroke protocol, NIH Stroke Scale, neuro's q.4 hours - Monitor CBC, CMP, magnesium, troponin, and lipid profile - Monitor blood pressure, allow for permissive hypertension. - Telemetry monitoring - Monitor blood glucose - PT/OT eval and treat - Neurology consulted, appreciate assistance and recommendations Patient will be continued on aspirin and Plavix Routine EEG to rule out the possibility of the focal seizures resulting intermittent more confusion : unremarkable Remains at baseline Aox2 on assessment following some commands. Remains on asa, Plavix and statin as above. Given confusion and patient attempting to repeatedly get out of bed a sitter was placed in the room on 06/21. Per care coordination patient will need to be sitter free for 24 hours prior to discharge back to facility. Per RN patient has been more calm today, will attempt to remove sitter and closely monitor patient. (2) UTI (urinary tract infection): Code(s): N39.0 - Urinary tract infection, site not specified Status: Acute Assessment and Plan: - UA on 06/16 concerning for infection, repeat UA nonconcerning for acute infection - UC obtained on 06/16: ecoli with resistance to ampicillin, gentamicin and tetracycline - No previous micro to be reviewed - previously seen in the ED on 06/16 and started on ciprofloxacin for UTI, started on Rocephin on admission. Completed the course of antibiotics on 06/21. (3) Diabetes mellitus: Code(s): E11.9 - Type 2 diabetes mellitus without complications Status: Acute Assessment and Plan: - hypoglycemia protocol - POC blood glucose ACHS - home medication - lantus 10 units qAM and 42 units aPM - correct regimen ordered - will hold the lantus 10 units qAM, give 42 units qHS and start SSI Glucose remains elevated. Will increase Lantus to home dose. A1c 8.1. Closely monitor glucose levels, adjust medications accordingly. (4) Pulmonary nodule: Code(s): R91.1 - Solitary pulmonary nodule Status: Acute Assessment and Plan: Head/neck CTA: Pulmonary nodules measuring up to 8 mm, which may be infection or metastatic disease. Lungs clear on auscultation with stable vitals, no associated cough and down trending WBC without abx intervention Plan for outpatient follow up Plan Care coordination following for discharge- anticipate tomorrow, 06/24 Time Spent With Patient Time with patient: 25 - 35 minutes Subjective Date/time seen: 06/23/25 08:36 Interval history: 75-year-old female with past medical history of hypertension, anemia, diabetes mellitus, hyperlipidemia, Parkinson's, schizophrenia presents to the hospital on 06/19/2025 from [facility] for increased confusion (baseline AOx1-2) and unwitnessed fall and nursing staff reporting she was more confused than usual. Was also seen in the ER on 06/16/2025 for weakness, CT brain showed chronic findings, given antibiotics after being diagnosed a UTI. Patient pleasant lying comfortably in bed. She remains AOx2, remains confused. She has no complaints denying chest pain, palpitations, shortness of breath, nausea/vomiting, abdominal pain. Required a sitter a some point but had been without one for at least 24 h now. Review of Systems Review of Systems: All systems reviewed & are unremarkable except as noted in HPI and below ROS unobtainable: Yes unobtainable due to medical condition Exam Narrative: General: female in no acute respiratory distress who is nontoxic appearing, lying semirecumbent in bed. HEENT: Normocephalic. Atraumatic. Extraocular movement intact. Sclera clear and anicteric. No facial asymmetry. Chest: Lungs are clear to auscultation bilaterally. No wheezes or crackles. CV: Heart was regular rate and rhythm. Abd: Abdomen was soft. Nontender. Nondistended. Positive bowel sounds. Ext: No clubbing, cyanosis, or edema. DP pulses bilaterally. Neuro: Patient is alert and oriented x2 (person, place). Following some commands. Possible right upper extremity neglect with noted right upper extremity drift. Sensation and movement to the lower extremities remains intact, symmetrical strength. Speech is clear. Const: General: comfortable and no acute distress Other: Pleasantly confused Eyes: Pupils: Equal, round and reactive pupils present Neck: Neck: supple Resp: Effort & Inspection: normal respiratory effort Auscultation: clear to auscultation bilaterally Cardio: Rate: regular rate Rhythm: regular rhythm Neuro: Cranial nerves: Yes Equal, round and reactive pupils present Extrem: General: no edema Objective Data Vital Signs Vital Signs: Vital Signs - 24 hr 06/22/25 10:10 06/22/25 16:30 06/22/25 19:45 Temperature 97.2 F L 97.6 F Pulse Rate 100 91 65 Respiratory Rate 18 17 Blood Pressure 114/65 125/65 Pulse Oximetry 95 95 Oxygen Delivery Room Air 06/22/25 22:47 Temperature Pulse Rate Respiratory Rate Blood Pressure Pulse Oximetry 95 Oxygen Delivery Room Air Intake/Output Intake/Output: Intake & Output 06/20/25 06/21/25 06/22/25 06/23/25 23:59 23:59 23:59 23:59 Intake Total 1210 1247 667 50 Output Total 0 Balance 1210 1247 667 50 Meds/Results Medications: Active Medications Generic Name Dose Route Start Last Admin Trade Name Freq PRN Reason Stop Dose Admin Acetaminophen 650 mg 06/20/25 13:46 Acetaminophen 325 Mg Tablet PO Q4H PRN Pain Aripiprazole 5 mg 06/21/25 09:00 06/22/25 10:10 Aripiprazole 5 Mg Tablet PO 5 mg DAILY ELMO Administration Aspirin 81 mg 06/20/25 04:30 06/22/25 10:10 Aspirin 81 Mg Enteric Tablet PO 81 mg QAM ELMO Administration Atorvastatin Calcium 40 mg 06/22/25 09:00 06/22/25 10:10 Atorvastatin 40 Mg Tablet PO 40 mg DAILY ELMO Administration Benzonatate 100 mg 06/20/25 13:46 Benzonatate 100 Mg Capsule PO TID PRN Cough Clopidogrel Bisulfate 75 mg 06/22/25 09:00 06/22/25 10:10 Clopidogrel Bisulfate 75 Mg Tablet PO 75 mg QAM ELMO Administration Dextrose 12.5 gm 06/20/25 13:51 Dextrose 50% 25 Gm/50 Ml Syringe IV PUSH PRN PRN Hypoglycemia Protocol Fenofibrate 48 mg 06/21/25 09:00 06/22/25 10:10 Fenofibrate 48 Mg Tablet PO 48 mg DAILY ELMO Administration Glucagon 1 mg 06/20/25 13:51 Glucagon For Inj 1 Mg Vial IM PRN PRN Hypoglycemia Protocol Glucose 15 gm 06/20/25 13:51 Glucose Oral Gel 15 Gm Of Glucse In 37.5 Gm Tube PO PRN PRN Hypoglycemia Protocol Ceftriaxone Sodium 1 gm/ 50 mls @ 100 mls/hr 06/21/25 00:00 06/22/25 22:59 Sodium Chloride IVPB 100 mls/hr Q24H ELMO Administration Dextrose 1,000 mls @ 100 mls/hr 06/20/25 13:51 Dextrose 5% 1,000 Ml IVPB PRN PRN Hypoglycemia Protocol Insulin Aspart 2 - 5 units 06/20/25 17:00 06/22/25 18:09 Insulin Aspart (*Bkc) 100 Units/Ml SUB-Q 3 units TIDWM LEMO Administration Protocol Insulin Glargine 42 units 06/22/25 21:00 06/22/25 23:02 Insulin Glargine (*Bkc) 100 Units/Ml SUB-Q 42 units HS ELMO Administration Lidocaine 2 patch 06/20/25 09:00 06/22/25 10:10 Lidocaine 5% Patch TRANSDERM 2 patch QAM ELMO Administration Olanzapine 5 mg 06/21/25 21:00 06/22/25 23:00 Olanzapine Odt Dispertab 5 Mg PO 5 mg BEDTIME ELMO Administration Ondansetron HCl 4 mg 06/20/25 13:46 Ondansetron Hcl Odt 4 Mg Tablet PO Q6H PRN Nausea And Vomiting Radiology Results: ITS Impressions Cervical Spine CT 06/20/25 06:41 IMPRESSION: HEAD: 1. Large infarct left temporal and parietal lobes. 2. No hemorrhagic conversion or intracranial hemorrhage. C-SPINE: 1. No acute fracture. Head CT 06/20/25 06:41 IMPRESSION: HEAD: 1. Large infarct left temporal and parietal lobes. 2. No hemorrhagic conversion or intracranial hemorrhage. C-SPINE: 1. No acute fracture. Head/Neck CTA 06/20/25 07:17 IMPRESSION: 1. Acute infarct involving the left temporal, parietal, and occipital lobes and left insula and expected distribution of left middle cerebral artery. 2. Moderate nonspecific cerebral white matter disease, which likely represents chronic small vessel ischemic disease. 3. 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 4. 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 5. 31% stenosis of the proximal right internal carotid artery relative to normal distal artery lumen diameter (NASCET criteria). 6. 5% stenosis of the proximal left internal carotid artery relative to normal distal artery lumen diameter. 7. Pulmonary nodules measuring up to 8 mm, which may be infection or metastatic disease. Chest X-Ray 06/20/25 10:38 IMPRESSION: 1. No acute cardiopulmonary findings given portable technique. Labs Labs: Laboratory Results - last 24 hr 06/22/25 06/22/25 06/22/25 08:13 11:28 17:38 WBC RBC Hgb Hct MCV MCH MCHC RDW Plt Count MPV Sodium Potassium Chloride Carbon Dioxide Anion Gap BUN Creatinine Estim Creat Clear Calc Estimated GFR Glucose POC Capillary Glucose 270 H 311 H 252 H Calcium Total Bilirubin AST ALT Alkaline Phosphatase Total Protein Albumin 06/22/25 06/23/25 06/23/25 23:02 05:56 08:10 WBC 10.1 H RBC 5.16 Hgb 13.8 Hct 42.2 MCV 81.8 MCH 26.7 MCHC 32.7 RDW 13.0 Plt Count 358 MPV 9.8 Sodium 136 L Potassium 4.1 Chloride 103 Carbon Dioxide 27 Anion Gap 6 BUN 14 Creatinine 0.71 Estim Creat Clear Calc 65 Estimated GFR > 60 Glucose 248 H POC Capillary Glucose 299 H 266 H Calcium 9.7 Total Bilirubin 0.5 AST 29 ALT 12 Alkaline Phosphatase 87 Total Protein 6.5 Albumin 3.7 Quality VTE Prophylaxis VTE prophylaxis: mechanical ordered
[2025-06-23] MEDS: INSULIN ASPART (*BKC) 100 UNITS/ML SUB-Q ×3 (09:15→17:52)
--- NOTE | 2025-06-23 10:04 | P.DS_ITS ---
DS: Discharge Diagnosis Discharge Diagnosis (1) CVA (cerebrovascular accident): Code(s): I63.9 - Cerebral infarction, unspecified Status: Acute Assessment and Plan: - Head/neck CT: Large infarct left temporal and parietal lobes with no hemorrhagic conversion or intracranial hemorrhage and no acute fracture of the c spine - Head/neck CTA: acute infarct involving the left temporal, parietal, and occipital lobes and left insula and expected distribution of left middle cerebral artery. 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 - MRI unable to be obtained as unknown history of stents - Echo with LVEF 65-70% with grade I diastolic dysfunction - Lipid panel ordered. Atorvastatin increased to 40 mg daily, consider zetia - Continue aspirin, appreciate recommendations on initiation of plavix - Initiate stroke protocol, NIH Stroke Scale, neuro's q.4 hours - Monitor CBC, CMP, magnesium, troponin, and lipid profile - Monitor blood pressure, allow for permissive hypertension. - Telemetry monitoring - Monitor blood glucose - PT/OT eval and treat - Neurology consulted, appreciate assistance and recommendations Patient will be continued on aspirin and Plavix Routine EEG to rule out the possibility of the focal seizures resulting intermittent more confusion : unremarkable Remains at baseline Aox2 on assessment following some commands. Remains on asa, Plavix and statin as above. Given confusion and patient attempting to repeatedly get out of bed a sitter was placed in the room on 06/21. Per care coordination patient will need to be sitter free for 24 hours prior to discharge back to facility. Per RN patient has been more calm today, will attempt to remove sitter and closely monitor patient. (2) UTI (urinary tract infection): Code(s): N39.0 - Urinary tract infection, site not specified Status: Acute Assessment and Plan: - UA on 06/16 concerning for infection, repeat UA nonconcerning for acute infection - UC obtained on 06/16: ecoli with resistance to ampicillin, gentamicin and tetracycline - No previous micro to be reviewed - previously seen in the ED on 06/16 and started on ciprofloxacin for UTI, started on Rocephin on admission. Completed the course of antibiotics on 06/21. (3) Diabetes mellitus: Code(s): E11.9 - Type 2 diabetes mellitus without complications Status: Acute Assessment and Plan: - hypoglycemia protocol - POC blood glucose ACHS - home medication - lantus 10 units qAM and 42 units aPM - correct regimen ordered - will hold the lantus 10 units qAM, give 42 units qHS and start SSI Glucose remains elevated. Will increase Lantus to home dose. A1c 8.1. Closely monitor glucose levels, adjust medications accordingly. (4) Pulmonary nodule: Code(s): R91.1 - Solitary pulmonary nodule Status: Acute Assessment and Plan: Head/neck CTA: Pulmonary nodules measuring up to 8 mm, which may be infection or metastatic disease. Lungs clear on auscultation with stable vitals, no associated cough and down trending WBC without abx intervention Plan for outpatient follow up DS: Summary Time Spent with Patient Time attestation: Total time spent providing and/or coordinating discharge services: Exam Narrative: AF HR 100 RR 18 SPO2 98 BP 132/83 General: female in no acute respiratory distress who is nontoxic appearing, lying semirecumbent in bed. HEENT: Normocephalic. Atraumatic. Extraocular movement intact. Sclera clear and anicteric. No facial asymmetry. Chest: Lungs are clear to auscultation bilaterally. No wheezes or crackles. CV: Heart was regular rate and rhythm. Abd: Abdomen was soft. Nontender. Nondistended. Positive bowel sounds. Ext: No clubbing, cyanosis, or edema. DP pulses bilaterally. Neuro: Patient is alert and oriented x2 (person, place). Following some commands, not very compliant with exam. Possible right upper extremity neglect with noted right upper extremity drift. Sensation and movement to the lower extremities remains intact, symmetrical strength. Speech is clear. Const: General: comfortable and no acute distress Other: Pleasantly confused Eyes: Pupils: Equal, round and reactive pupils present Neck: Neck: supple Resp: Effort & Inspection: normal respiratory effort Auscultation: clear to auscultation bilaterally Cardio: Rate: regular rate Rhythm: regular rhythm Neuro: Cranial nerves: Yes Equal, round and reactive pupils present Extrem: General: no edema DS: Data Data Completed and Pending Labs on day of discharge: Labs from last 24 hours 06/23/25 06/23/25 06/22/25 08:10 05:56 23:02 WBC 10.1 H RBC 5.16 Hgb 13.8 Hct 42.2 MCV 81.8 MCH 26.7 MCHC 32.7 RDW 13.0 Plt Count 358 MPV 9.8 Sodium 136 L Potassium 4.1 Chloride 103 Carbon Dioxide 27 Anion Gap 6 BUN 14 Creatinine 0.71 Estim Creat Clear Calc 65 Estimated GFR > 60 Glucose 248 H POC Capillary Glucose 266 H 299 H Calcium 9.7 Total Bilirubin 0.5 AST 29 ALT 12 Alkaline Phosphatase 87 Total Protein 6.5 Albumin 3.7 06/22/25 06/22/25 17:38 11:28 WBC RBC Hgb Hct MCV MCH MCHC RDW Plt Count MPV Sodium Potassium Chloride Carbon Dioxide Anion Gap BUN Creatinine Estim Creat Clear Calc Estimated GFR Glucose POC Capillary Glucose 252 H 311 H Calcium Total Bilirubin AST ALT Alkaline Phosphatase Total Protein Albumin Discharge Plan Discharge Consulting providers: Garcia Ness; Jesús Tubbs; Maritza Miller Patient Language: Amharic Discharge Medications: No Action aripiprazole 5 mg tablet 5 mg PO DAILY atorvastatin 10 mg tablet 10 mg PO QPM fenofibrate nanocrystallized 48 mg tablet 48 mg PO DAILY fluticasone propionate 50 mcg/actuation spray,suspension 2 spray INTRANASAL QAM insulin glargine-yfgn 100 unit/mL (3 mL) insulin pen 42 unit SUBCUT QPM insulin glargine-yfgn 100 unit/mL solution 10 unit SUBCUT QAM lidocaine 5 % adhesive patch,medicated 1 patch transdermal QAM Rx Instructions: apply to left and right lower back ondansetron HCl 4 mg tablet 4 mg PO Q6H PRN (Reason: nausea and vomiting) acetaminophen 325 mg capsule 650 mg PO Q4H PRN (Reason: pain) benzonatate 100 mg capsule 100 mg PO TID PRN (Reason: cough) cholecalciferol (vitamin D3) 25 mcg (1,000 unit) capsule 2,000 unit PO DAILY ciprofloxacin HCl 250 mg tablet 250 mg PO Q12H bisacodyl 10 mg suppository 10 mg RECTAL ONCE PRN (Reason: constipation) insulin glargine [Lantus U-100 Insulin] 100 unit/mL solution 43 unit subcut QPM Date of admission: 06/20/25 04:09 Primary Care Provider: Hudson De La Cruz Admitting Provider: Aleksandra Manjarrez Attending physician on admission: Aleksandra Manjarrez Condition: Stable Quality VTE Prophylaxis VTE prophylaxis: mechanical ordered
[2025-06-23 14:00] VITALS: BP 110/63; PULSE 94; RESP 16; TEMP 36.2; O2SAT 98
[2025-06-23] MEDS: OLANZapine ODT DISPERTAB 5 MG PO (19:40)
[2025-06-23 21:03] VITALS: BP 144/77; PULSE 92; RESP 24; TEMP 36.4; O2SAT 98
[2025-06-23] MEDS: INSULIN GLARGINE (*BKC) 100 UNITS/ML 42 UNITS SUB-Q (21:04)
[2025-06-23 21:27] VITALS: O2SAT 95
[2025-06-23] MEDS: cefTRIAXone 1 GM in SODIUM CHLORIDE 0.9% IV 50 ML 100 ML IVPB (23:31)
[2025-06-24 04:51] VITALS: BP 145/85; PULSE 93; RESP 20; TEMP 36.2; O2SAT 100
[2025-06-24 06:19] LABS: Hematocrit 41.2 % (37.0-47.0); Hemoglobin 13.5 g/dL (12.0-15.0); Mean Corpuscular HGB Conc 32.8 g/dl (32-36); Mean Corpuscular Hemoglobin 27.2 pg (26-34); Mean Corpuscular Volume 83.1 fl (80-100); Platelet Count Result 333 k/mm3 (150-375); Red Blood Count 4.96 M/mm3 (4.2-5.4); White Blood Count 12.0 K/mm3 (4.5-10.0)
[2025-06-24 06:28] LABS: Alanine Aminotransferase 13 U/L (6-35); Albumin Level 3.9 g/dL (3.5-5.1); Alkaline Phosphatase 78 U/L (38-126); Anion Gap 7 mmol/L (4-12); Aspartate Amino Transferase 17 U/L (14-36); Bilirubin,Total 0.5 mg/dL (0.2-1.3); Blood Urea Nitrogen 15 mg/dL (7-17); Calcium 9.7 mg/dL (8.4-10.2); Carbon Dioxide 26 mmol/L (22-30); Chloride 103 mmol/L (98-107); Estimated CRCL calculation 73 ml/min; Estimated Glomerular Filt Rate > 60; Glucose 207 mg/dL (65-110); Potassium 3.7 mmol/L (3.4-5.0); Sodium 136 mmol/L (137-145); Total Protein 6.8 g/dL (6.3-8.2)
[2025-06-24] MEDS: FENOFIBRATE 48 MG TABLET PO (09:56)
[2025-06-24] MEDS: ASPIRIN 81 MG ENTERIC TABLET PO (09:56)
[2025-06-24] MEDS: CLOPIDOGREL BISULFATE 75 MG TABLET PO (09:56)
[2025-06-24] MEDS: ATORVASTATIN 40 MG TABLET PO (09:56)
[2025-06-24] MEDS: LIDOCAINE 5% PATCH 2 PATCH TRANSDERM (09:56)
--- NOTE | 2025-06-24 11:02 | P.DS_ITS ---
DS: Admitting Diagnosis Discharge Date 06/24 Admitting Diagnosis fall, confusion DS: Discharge Diagnosis Discharge Diagnosis (1) CVA (cerebrovascular accident): Code(s): I63.9 - Cerebral infarction, unspecified Status: Acute (2) UTI (urinary tract infection): Code(s): N39.0 - Urinary tract infection, site not specified Status: Acute (3) Diabetes mellitus: Code(s): E11.9 - Type 2 diabetes mellitus without complications Status: Acute (4) Pulmonary nodule: Code(s): R91.1 - Solitary pulmonary nodule Status: Acute DS: Summary Hospital Course Hospital Course: Interval history: 75-year-old female with past medical history of hypertension, anemia, diabetes mellitus, hyperlipidemia, Parkinson's, schizophrenia presents to the hospital on 06/19/2025 from [facility] for increased confusion (baseline AOx1-2) and unwitnessed fall and nursing staff reporting she was more confused than usual. Was also seen in the ER on 06/16/2025 for weakness, CT brain showed chronic findings, given antibiotics after being diagnosed a UTI. # CVA - Head/neck CT: Large infarct left temporal and parietal lobes with no hemorrhagic conversion or intracranial hemorrhage and no acute fracture of the c spine - Head/neck CTA: acute infarct involving the left temporal, parietal, and occipital lobes and left insula and expected distribution of left middle cerebral artery. 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 - MRI unable to be obtained as unknown history of stents - Echo with LVEF 65-70% with grade I diastolic dysfunction - Lipid panel ordered. Atorvastatin increased to 40 mg daily, consider zetia - Continue aspirin, appreciate recommendations on initiation of plavix - Initiate stroke protocol, NIH Stroke Scale, neuro's q.4 hours - Telemetry monitoring - Monitor blood glucose - PT/OT eval and treat - Neurology consulted, appreciate assistance and recommendations Patient will be continued on aspirin and Plavix Routine EEG to rule out the possibility of the focal seizures resulting intermittent more confusion : unremarkable Remains at baseline Aox2 on assessment following some commands. Given confusion and patient attempting to repeatedly get out of bed a sitter was placed in the room on 06/21. Per care coordination patient will need to be sitter free for 24 hours prior to discharge back to facility. Per RN patient has been more calm today, will attempt to remove sitter and closely monitor patient. Had been sitter free for 2 days now. stable. # UTI (urinary tract infection): - UA on 06/16 concerning for infection, repeat UA nonconcerning for acute infection - UC obtained on 06/16: ecoli with resistance to ampicillin, gentamicin and tetracycline - No previous micro to be reviewed - previously seen in the ED on 06/16 and started on ciprofloxacin for UTI, started on Rocephin on admission. Completed the course of antibiotics. # Diabetes mellitus: - hypoglycemia protocol - POC blood glucose ACHS - home medication - lantus 10 units qAM and 42 units aPM - correct regimen ordered - will hold the lantus 10 units qAM, give 42 units qHS and start SSI Glucose remains elevated- Lantus dose was increased to 42 units at hs . A1c 8.1. # Pulmonary nodule: Head/neck CTA: Pulmonary nodules measuring up to 8 mm, which may be infection or metastatic disease. Lungs clear on auscultation with stable vitals, no associated cough and down trending WBC without abx intervention Plan for outpatient follow up slight increase in wbc no fever, lungs are clear. Encouraged ambulation/IS if able to follow instructions Status at Discharge Functional status at discharge: uses cane/walker Overall status at discharge: patient is progressing back to baseline Time Spent with Patient Time attestation: Total time spent providing and/or coordinating discharge services: Time spent: Greater than 30 minutes Exam Narrative: General: female in no acute respiratory distress who is nontoxic appearing, lying semirecumbent in bed. HEENT: Normocephalic. Atraumatic. Extraocular movement intact. Sclera clear and anicteric. No facial asymmetry. Chest: Lungs are clear to auscultation bilaterally. No wheezes or crackles. CV: Heart was regular rate and rhythm. Abd: Abdomen was soft. Nontender. Nondistended. Positive bowel sounds. Ext: No clubbing, cyanosis, or edema. DP pulses bilaterally. Neuro: Patient is alert and oriented x2 (person, place). Following some commands. Possible right upper extremity neglect with noted right upper extremity drift. Sensation and movement to the lower extremities remains intact, symmetrical strength. Speech is clear. Const: General: comfortable Other: Pleasantly confused DS: Data Data Completed and Pending Labs on day of discharge: Labs from last 24 hours 06/24/25 06/24/25 06/23/25 08:00 05:37 21:02 WBC 12.0 H RBC 4.96 Hgb 13.5 Hct 41.2 MCV 83.1 MCH 27.2 MCHC 32.8 RDW 12.8 Plt Count 333 MPV 9.7 Sodium 136 L Potassium 3.7 Chloride 103 Carbon Dioxide 26 Anion Gap 7 BUN 15 Creatinine 0.63 L Estim Creat Clear Calc 73 Estimated GFR > 60 Glucose 207 H POC Capillary Glucose 194 H 306 H Calcium 9.7 Total Bilirubin 0.5 AST 17 ALT 13 Alkaline Phosphatase 78 Total Protein 6.8 Albumin 3.9 06/23/25 06/23/25 16:20 11:24 WBC RBC Hgb Hct MCV MCH MCHC RDW Plt Count MPV Sodium Potassium Chloride Carbon Dioxide Anion Gap BUN Creatinine Estim Creat Clear Calc Estimated GFR Glucose POC Capillary Glucose 276 H 261 H Calcium Total Bilirubin AST ALT Alkaline Phosphatase Total Protein Albumin Discharge Plan Discharge Attending physician on discharge: Severino Dudley Consulting providers: Garcia Ness; Jesús Tubbs; Maritza Miller Discharging Clinician: Maddie Graff Patient Disposition: SNF Activity: december shower Diet: heart healthy Patient Language: Greek Stand Alone Forms: General Discharge Information Discharge Medications: New aspirin 81 mg Tablet,Delayed Release (Dr/Ec) 81 mg PO QAM Qty: 30 0RF atorvastatin 40 mg Tablet 40 mg PO DAILY Qty: 30 0RF clopidogrel 75 mg Tablet 75 mg PO QAM Qty: 30 0RF olanzapine [Zyprexa Zydis] 5 mg Tablet,Disintegrating 5 mg PO BEDTIME Qty: 30 0RF Continued aripiprazole 5 mg tablet 5 mg PO DAILY fenofibrate nanocrystallized 48 mg tablet 48 mg PO DAILY fluticasone propionate 50 mcg/actuation spray,suspension 2 spray INTRANASAL QAM insulin glargine-yfgn 100 unit/mL (3 mL) insulin pen 42 unit SUBCUT QPM insulin glargine-yfgn 100 unit/mL solution 10 unit SUBCUT QAM lidocaine 5 % adhesive patch,medicated 1 patch transdermal QAM Rx Instructions: apply to left and right lower back ondansetron HCl 4 mg tablet 4 mg PO Q6H PRN (Reason: nausea and vomiting) acetaminophen 325 mg capsule 650 mg PO Q4H PRN (Reason: pain) benzonatate 100 mg capsule 100 mg PO TID PRN (Reason: cough) cholecalciferol (vitamin D3) 25 mcg (1,000 unit) capsule 2,000 unit PO DAILY bisacodyl 10 mg suppository 10 mg RECTAL ONCE PRN (Reason: constipation) insulin glargine [Lantus U-100 Insulin] 100 unit/mL solution 43 unit subcut QPM Discontinued atorvastatin 10 mg tablet 10 mg PO QPM ciprofloxacin HCl 250 mg tablet 250 mg PO Q12H Other Ambulatory Orders: Complete Blood Count no Diff (Routine) Timeframe: 1 Week Location: Determined by Patient Ordered By: Maddie Graff Date of admission: 06/20/25 04:09 Primary Care Provider: Hudson De La Cruz Admitting Provider: Aleksandra Manjarrez Attending physician on admission: Aleksandra Manjarrez Condition: Stable Quality VTE Prophylaxis VTE prophylaxis: mechanical ordered Hospitalist MIPS Heart Failure (Exclusion) Patient has history of Heart Transplant or Left Ventricular Assistive Device?: No IF YES, STOP HERE Heart Failure (Qualifier) Patient has current or prior documentation of LVEF less than or equal to 40%, or mod/servere depressed LVSF?: No IF NO, STOP HERE
[2025-06-24] MEDS: INSULIN ASPART (*BKC) 100 UNITS/ML SUB-Q (12:42)
== END 2025-06-24 14:20 | DRG 65 ==
LOC: ANHED 06-20 04:09 → ANH3MED 06-20 04:52
PROVIDERS: Student in an Organized Health Care Education/Training Program; Admitting Provider General Practice; Emergency Provider Emergency Medicine; Visit Provider Nurse Practitioner
DX: I63.9 Cerebral infarction, unspecified (principal); N39.0 Urinary tract infection, site not specified; Z16.24 Resistance to multiple antibiotics; B96.20 Unspecified Escherichia coli [E. coli] as the cause of diseases classified elsewhere; I65.01 Occlusion and stenosis of right vertebral artery; I65.23 Occlusion and stenosis of bilateral carotid arteries; I66.02 Occlusion and stenosis of left middle cerebral artery; I11.9 Hypertensive heart disease without heart failure; I51.89 Other ill-defined heart diseases; E11.9 Type 2 diabetes mellitus without complications; E78.00 Pure hypercholesterolemia, unspecified; D64.9 Anemia, unspecified; W18.30XA Fall on same level, unspecified, initial encounter; G20.A1 Parkinson's disease without dyskinesia, without mention of fluctuations; F20.9 Schizophrenia, unspecified; R91.1 Solitary pulmonary nodule; H26.9 Unspecified cataract; Z20.822 Contact with and (suspected) exposure to COVID-19; Z86.69 Personal history of other diseases of the nervous system and sense organs
CPT/HCPCS: 36415; 70450; 70496; 70498; 71045; 72125; 72170; 80053; 80061; 80143; 80179; 80307; 81001; 82077; 82550; 82803; 82948; 83036; 83605; 83690; 83735; 83880; 84100; 84145; 84443; 84484; 85025; 85027; 85610; 85730; 87637; 92526; 92610; 93005; 93306; 95816; 96365; 96372; 96375; 97116; 97162; 97166; 97530; 97535; 99285; A9270; J0696; J1815; Q9967